=== PATIENT | female | born 1995 | race Caucasian/White ===

== ENCOUNTER 2021-01-04 15:10 | Emergency (ER) | payer OTHER, SELFPAY ==
[2021-01-04 16:27] VITALS: BP 147/85; PULSE 65; RESP 20; TEMP 36.6; O2SAT 100; BMI 31.8
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
== END 2021-01-04 18:44 | disposition home or self-care (01) ==
PROVIDERS: Emergency Provider Internal Medicine; PCP Internal Medicine
DX: S06.0X0A Concussion without loss of consciousness, initial encounter (principal); S39.012A Strain of muscle, fascia and tendon of lower back, initial encounter; S29.012A Strain of muscle and tendon of back wall of thorax, initial encounter; S50.12XA Contusion of left forearm, initial encounter; S80.02XA Contusion of left knee, initial encounter; V47.6XXA Car passenger injured in collision with fixed or stationary object in traffic accident, initial encounter; Y93.89 Activity, other specified; Y92.411 Interstate highway as the place of occurrence of the external cause; Y99.9 Unspecified external cause status
CPT/HCPCS: 99283; 99284

== ENCOUNTER 2021-02-07 22:32 | Emergency (ER) | payer OTHER, SELFPAY ==
[2021-02-07 22:37] VITALS: BP 130/84; PULSE 58; RESP 16; TEMP 37.2; O2SAT 100; BMI 31.8
--- NOTE | 2021-02-07 23:42 | ED.FEMALEGU ---
HPI - Female Genitourinary General Chief complaint: Vaginal Bleeding Stated complaint: vag bleed Time Seen by Provider: 02/07/21 23:20 Source: patient Mode of arrival: ambulatory Limitations: no limitations History of Present Illness HPI Narrative: Patient comes emergency room complaining of pelvic discomfort. Patient states that she has had an IUD for about a year, over last few months, she has had a poking sensation with certain movements. However, in the past several days, patient states that she has a continues poking sensation, worse when she is having bowel movements. Patient states that she usually does not get periods with the IUD. However, over the last few days she has been spotting. Patient denies dysuria, no fever chills. Related Data Previous Rx's Medication Instructions Recorded cyclobenzaprine 10 mg PO TID PRN #12 tab 01/04/21 ibuprofen 600 mg PO Q8H PRN #15 tab 01/04/21 lidocaine [Lidoderm] 1 patch TOPICAL DAILY #15 ea 01/04/21 ondansetron HCl [Zofran] 4 mg PO Q6H PRN #10 tab 01/04/21 Allergies Allergy/AdvReac Type Severity Reaction Status Date / Time No Known Allergies Allergy Verified 01/04/21 17:20 [No Known Allergies*] Review of Systems Review of Systems: Constitutional : No Weight loss, No Fever, No Chills, No Night Sweats, No Fatigue, No Malaise ENT/Mouth : No Hearing loss, No Ear Pain, No Nasal Congestion, No Sinus Pain, No Hoarseness, No sore throat, No Rhinorrhea, No Swallowing Difficulty Eyes: No Eye Pain, No Swelling, No Redness, No Foreign Body, No Discharge, No Vision Changes Cardiovascular : No Chest Pain, No SOB, No Dyspnea on Exertion, No Orthopnea, No Edema, No Palpitations Respiratory : No Cough, No Sputum, No Wheezing, No Smoke Exposure, No Dyspnea Gastrointestinal : No Nausea, No Vomiting, No Diarrhea, No Constipation, No abdominal Pain, No Hematochezia, No Melena Genitourinary : Complaining of spotting, No Dysuria, No Urinary Frequency, No Hematuria, No Urinary Incontinence, No Urgency, No Flank Pain, No Urinary Flow Changes, No Hesitancy, complaining IUD poking sensation Musculoskeletal : No joint pain, No Myalgias, No Joint Swelling Skin : No Skin Lesions, No rash Neuro : No Weakness, No Numbness, No Paresthesias, No Loss of Consciousness, No Dizziness, No Headache Psych : No Anxiety/Panic, No Depression, No SI/HI/AH/VH, No Social Issues, Heme/Lymph: No Bruising, No Bleeding,No Lymphadenopathy Endocrine : No Polyuria, No Polydipsia, No Temperature Intolerance PMF Past Medical History Medical History (Updated 02/08/21 @ 00:23 by Ana العلي MD) Endometriosis Social History Social History Alcohol intake: never Smoked in Last 30 Days: No Use of substances other than those prescribed or required for medical reasons: No Any prior treatment program specific to substance use: No Advance Directives: No Advance Directives Information Provided: No Patient : No Physical Exam Vital Signs: Vital Signs: Last Vital Signs Temp 98.9 F 02/07/21 22:37 Pulse 58 02/07/21 22:37 Resp 16 02/07/21 22:37 BP 130/84 02/07/21 22:37 Pulse Ox 100 02/07/21 22:37 Body Mass Index 31.8 Appearance: Alert. Oriented X3. No acute distress. Eyes: Pupils equal, round and reactive to light. ENT: Pharynx normal. Neck: Normal inspection. Neck supple. No lymph nodes noted. No crepitus CVS: Normal heart rate and rhythm. Pulses normal. Normal S1 and S2 Respiratory: No respiratory distress. Breath sounds normal. No Wheezing. No rales Abdomen: Soft and nontender. No rigidity. No distention. : Skin: Skin warm and dry. Normal skin color. Normal skin turgor. Extremities: No lower extremity edema. No lower extremity edema. No Lacerations. No Rash Neuro: Oriented X 3. No motor deficit. No sensory deficit. Moving all extermities. No slurred speech. Course Course Course Narrative: I discussed with the patient that the IUD on cervical exam looks like it is in place. Discussed with the patient we can not do a CT scan to verify the position. Patient states that she does not want the IUD, states that she would like to have it removed. I discussed with the patient that it would be a better option to discuss the IUD removal with her OBGYN, considering the patient has severe endometriosis. Patient states that she is already taking Orlissa, and either way she will want to have the IUD removed due to the constant are discomfort your I discussed with the patient that we can remove it. But she needs to have close follow-up with her primary care physician and OBGYN of patient is aware that once it is removed, she may have heavy bleeding on her menstrual periods again cleared patient states that she is agreeable with this. I also discussed with the patient that she may need backup control methods such as condoms. Patient is aware as well. The IUD was removed uneventfully, patient was medicated with 600 mg of ibuprofen Discharge Plan Discharge Clinical Impression: Remove/insert IUD Patient Disposition: Home, Self-Care Additional Instructions: Please follow-up with your primary care physician tomorrow. If you have any worsening or new symptoms, please return to the emergency room or call 911 Prescriptions: No Action ondansetron HCl [Zofran] 4 mg tablet 4 mg PO Q6H PRN (Reason: nausea and vomiting) Qty: 10 RF: 0 cyclobenzaprine 10 mg tablet 10 mg PO TID PRN (Reason: muscle spasm) Qty: 12 RF: 0 lidocaine [Lidoderm] 5 % adhesive patch,medicated 1 patch topical DAILY Qty: 15 RF: 0 ibuprofen 600 mg tablet 600 mg PO Q8H PRN (Reason: pain) Qty: 15 RF: 0
--- NOTE | 2021-02-08 00:23 | PC.NURSE ---
PT HAD PELVIC EAM PERFORMED BY DR. ORTIZ AND RAHDA REMOVED BY DR. ORTIZ.
[2021-02-08] MEDS: Ibuprofen 600 MG TABLET PO (00:28)
== END 2021-02-08 00:33 | disposition home or self-care (01) ==
PROVIDERS: Emergency Provider Emergency Medicine; PCP Internal Medicine
DX: N93.9 Abnormal uterine and vaginal bleeding, unspecified (principal); Z79.899 Other long term (current) drug therapy
CPT/HCPCS: 58301; 99284

== ENCOUNTER 2021-07-15 15:18 | Inpatient (IN) | payer OTHER, SELFPAY ==
--- NOTE | 2021-07-15 | ECG_ITS ---
Test Reason : MED CLEARANCE Blood Pressure : / mmHG Vent. Rate : 060 BPM Atrial Rate : 060 BPM P-R Int : 142 ms QRS Dur : 084 ms QT Int : 438 ms P-R-T Axes : 031 050 -03 degrees QTc Int : 438 ms Normal sinus rhythm Possible Left ventricular hypertrophy Nonspecific ST and T wave abnormality Abnormal ECG When compared with ECG of 16-DEC-2018 11:18, T wave inversion now evident in Inferior leads Nonspecific ST and T wave abnormality is new Referred By: Jes Beavers Electronically Signed By:SUDARSHAN CISNEROS MD
--- NOTE | 2021-07-15 15:37 | ED_ITS ---
HPI - Psych General Chief Complaint: Psychiatric Symptoms Stated Complaint: SECT 12,SEEN IN COMMUNITY,BED SEARCH IN PROGRESS Time Seen by Provider: 07/15/21 15:26 Source: EMS Mode of arrival: EMS Limitations: no limitations History of Present Illness HPI Narrative: 26-year-old female with a past medical history of anxiety, depression, endometriosis here with complaints of suicidal thoughts for the last few weeks. Patient tells me 3 days ago she took a handful of Seroquel in an attempt to overdose. She tells me that they were approximately 20 tablets 50 mg tablets. She tells me that she was not successful in this made her very upset. She denies any homicidal ideation or hallucinations. No physical complaints. She has a history of substance abuse but has not used for several weeks. Prior to this she was intermittently buying Percocets off the streets. She has a psychiatrist who prescribes her seroquel and sees a therapist weekly. Related Data Home Medications Medication Instructions Recorded Confirmed acetaminophen 500 mg tablet 500 mg PO TID 07/15/21 07/15/21 elagolix 150 mg tablet (Orilissa) 1 tab PO DAILY 07/15/21 07/15/21 multivitamin 1 tab PO DAILY 07/15/21 07/15/21 propranolol 20 mg tablet 1 tab PO BID 07/15/21 07/15/21 quetiapine 50 mg tablet 50 mg PO DAILY 07/15/21 07/15/21 quetiapine 50 mg tablet 100 mg PO BEDTIME 07/15/21 07/15/21 venlafaxine 150 mg 1 cap PO DAILY 07/15/21 07/15/21 capsule,extended release 24 hr venlafaxine 75 mg capsule,extended 1 cap PO DAILY 07/15/21 07/15/21 release 24 hr Allergies Allergy/AdvReac Type Severity Reaction Status Date / Time fish derived [fish] AdvReac Stomach Verified 07/15/21 15:51 Upset Review of Systems Review of Systems: Yes all other systems are reviewed and are negative Constitutional: Constitutional: Reports no additional constitutional complaints, Denies body ache(s), Denies chills, Denies fever(s), Denies headache(s) and Denies weakness Eyes: Eyes: Reports no additional eye complaints and Denies change in vision ENT: Reports system reviewed and no additional complaints, except as documented, Denies dizziness, Denies headache(s), Denies nasal congestion, Denies nasal discharge and Denies neck pain Cardiovascular: Cardiovascular: Reports no additional cardiovascular complaints, Denies chest pain, Denies leg edema and Denies dyspnea Respiratory: Respiratory: Reports no additional respiratory complaints, Denies cough and Denies dyspnea Gastrointestinal: Gastrointestinal: Reports no additional gastrointestinal complaints, Denies abdominal pain, Denies diarrhea, Denies nausea and Denies vomiting Genitourinary: Genitourinary: Reports no additional female genitourinary complaints and Denies urinary incontinence Musculoskeletal: Musculoskeletal: Reports no additional musculoskeletal complaints, Denies back pain, Denies arthralgias, Denies joint swelling, Denies neck pain, Denies numbness and Denies tingling Integumentary/Breasts: Skin/Breast: Reports system reviewed and no additional complaints, except as docu and Denies rash Neurologic: Reports system reviewed and no additional complaints, except as documented, Denies Abnormal speech present, Denies dizziness, Denies headache(s), Denies numbness, Denies tingling and Denies weakness Psychiatric: Psychiatric: Denies anxiety, Reports depression, Denies homicidal ideation and Reports suicidal ideation FOR[facility]LY [facility], [facility] Past Medical History Attestation statement: The following information was validated with the patient. Source: old records reviewed and nursing notes reviewed Medical History (Updated 07/15/21 @ 21:25 by Jes Beavers NP) Anxiety Depression Endometriosis Social History Social History Alcohol intake: never Advance Directives: No Advance Directives Information Provided: No Physical Exam Vital Signs: Vital Signs: Last Vital Signs Temp 98.7 F 07/15/21 15:39 Pulse 72 07/15/21 20:38 Resp 18 07/15/21 15:39 BP 123/87 07/15/21 20:38 Pulse Ox 97 07/15/21 15:39 Body Mass Index 42.3 Const: General: cooperative, healthy appearing, comfortable and no acute distress Orientation/consciousness: patient oriented x3 Limitations: no limitations HENMT: Head: Yes normal to inspection Ears: hearing grossly normal bilaterally General nose exam: Normal external nose present Face and sinus: Yes normal facial exam Mouth: Normal oral and palatal mucosa present Throat: Yes posterior oropharynx normal Eyes: General: appearance normal, both eyes and all related structures Pupils: Equal, round and reactive pupils present Neck: Neck: Yes normal visual inspection Chest: Chest palpation & inspection: normal inspection of the chest Resp: Effort & Inspection: normal respiratory effort Auscultation: clear to auscultation bilaterally Cardio: Rate: regular rate Rhythm: regular rhythm Peripheral pulses: Peripheral pulses 2+ throughout GI: Inspection: Yes normal to inspection Palpation (GI): Soft to palpation and nontender Auscultation: normal bowel sounds Back/Spine/Pelvis: Thoracic/Lumbar Spine: thoracic and lumbar spine normal to inspection Skin: General skin exam: no rashes or lesions noted Neuro: General: patient oriented x3, no focal motor deficits and normal sensation to monofilament Cranial nerves: Yes CN's II-XII intact bilaterally and Yes Equal, round and reactive pupils present Cognition (Neuro): normal cognition Speech: No Abnormal speech present Gait exam (Neuro): Normal gait present Motor exam (neuro): 5/5 motor strength present throughout Extrem: General: Yes normal to inspection Course Course Course Narrative: 26 yo female here with complaints of suicidal thoughts with a recent suicide attempt on a Section 12. No physical complaints. Will check labs, drug screen, COVID screen. 1645-reviewed labs, tox screen, COVID screen. At this time patient placed in physician observation pending disposition. MDM - Psych Medical Records Attestation: I reviewed the patient's medical records. Lab Data Attestation: I reviewed the patient's lab results. Result diagrams: 07/15/21 15:56 07/15/21 15:56 Labs: Lab Results 07/15/21 07/15/21 07/15/21 Range/Units 15:56 15:56 15:56 WBC 9.4 (4.8-10.8) X10*3/uL RBC 4.09 L (4.20-5.50) X10*6/uL Hgb 11.9 L (12.0-16.0) g/dl Hct 36.0 L (37.0-47.0) % MCV 88.0 (80.0-98.0) fL MCH 29.1 (27.0-33.0) pg MCHC 33.1 (31.0-35.0) g/dl RDW 13.8 (11.0-16.0) % Plt Count TNP MPV 11.5 (9.4-12.3) fL Immature Gran % (Auto) 0.4 (0.0-0.4) % Neut % (Auto) 77.3 H (45-73) % Lymph % (Auto) 16.7 L (20-40) % [place] % (Auto) 5.2 (2-11) % Eos % (Auto) 0.2 (0-4) % Baso % (Auto) 0.2 (0-2) % Lymph # (Auto) 1.6 (1.2-4.9) X10*3/uL [place] # (Auto) 0.5 (0.1-1.2) X10*3/uL Eos # (Auto) 0.0 (0.0-0.4) X10*3/uL Baso # (Auto) 0.0 (0.0-0.2) X10*3/uL Abs Immat Gran (auto) 0.04 H (0.00-0.03) X10*3/uL Absolute Neuts (auto) 7.28 (2.0-8.3) x10*3/uL Absolute Nucleated RBC 0.000 (0.0-0.012) X10*3/uL Nucleated RBC % (auto) 0.0 (0.0-0.2) /100WBC Smear Tech's Comments VERIFIED Sodium 143 (135-145) mmol/L Potassium 3.8 (3.3-5.1) mmol/L Chloride 104 (96-108) mmol/L Carbon Dioxide 28 (22-29) mmol/L Anion Gap 15 (12-20) BUN 19 H (9-16) mg/dL Creatinine 0.83 (0.5-1.4) mg/dL Estim Creat Clear Calc 118.8 Estimated GFR > 60 Random Glucose 110 (60-115) mg/dL Calcium 10.1 (8.4-10.2) mg/dL Total Bilirubin 0.4 (0.0-1.0) mg/dL Direct Bilirubin < 0.2 (0.0-0.5) mg/dL AST 15 (5-31) U/L ALT 16 (0-31) U/L Alkaline Phosphatase 75 (39-117) U/L Total Protein 8.0 (6.5-8.0) g/dL Albumin 4.9 (3.5-5.0) g/dL Urine Test (NEGATIVE) Salicylates < 5.0 L (15-30) mg/dL Urine Opiates Screen (Not Detect) Urine Fentanyl Screen (Not Detect) Acetaminophen 1 (<30) mcg/mL Ur Barbiturates Screen (Not Detect) Ur Phencyclidine Scrn (Not Detect) Ur Amphetamines Screen (Not Detect) U Benzodiazepines Scrn (Not Detect) Urine Cocaine Screen (Not Detect) U Marijuana (THC) Screen (Not Detect) Ethyl Alcohol mg/dL COVID-19 (FAVIAN) Negative (Negative) COVID-19 Clin Com See Note 07/15/21 07/15/21 07/15/21 Range/Units 15:56 15:56 15:56 WBC (4.8-10.8) X10*3/uL RBC (4.20-5.50) X10*6/uL Hgb (12.0-16.0) g/dl Hct (37.0-47.0) % MCV (80.0-98.0) fL MCH (27.0-33.0) pg MCHC (31.0-35.0) g/dl RDW (11.0-16.0) % Plt Count MPV (9.4-12.3) fL Immature Gran % (Auto) (0.0-0.4) % Neut % (Auto) (45-73) % Lymph % (Auto) (20-40) % [place] % (Auto) (2-11) % Eos % (Auto) (0-4) % Baso % (Auto) (0-2) % Lymph # (Auto) (1.2-4.9) X10*3/uL [place] # (Auto) (0.1-1.2) X10*3/uL Eos # (Auto) (0.0-0.4) X10*3/uL Baso # (Auto) (0.0-0.2) X10*3/uL Abs Immat Gran (auto) (0.00-0.03) X10*3/uL Absolute Neuts (auto) (2.0-8.3) x10*3/uL Absolute Nucleated RBC (0.0-0.012) X10*3/uL Nucleated RBC % (auto) (0.0-0.2) /100WBC Smear Tech's Comments Sodium (135-145) mmol/L Potassium (3.3-5.1) mmol/L Chloride (96-108) mmol/L Carbon Dioxide (22-29) mmol/L Anion Gap (12-20) BUN (9-16) mg/dL Creatinine (0.5-1.4) mg/dL Estim Creat Clear Calc Estimated GFR Random Glucose (60-115) mg/dL Calcium (8.4-10.2) mg/dL Total Bilirubin (0.0-1.0) mg/dL Direct Bilirubin (0.0-0.5) mg/dL AST (5-31) U/L ALT (0-31) U/L Alkaline Phosphatase (39-117) U/L Total Protein (6.5-8.0) g/dL Albumin (3.5-5.0) g/dL Urine Test NEGATIVE (NEGATIVE) Salicylates (15-30) mg/dL Urine Opiates Screen Not Detected (Not Detect) Urine Fentanyl Screen POSITIVE H (Not Detect) Acetaminophen (<30) mcg/mL Ur Barbiturates Screen Not Detected (Not Detect) Ur Phencyclidine Scrn Not Detected (Not Detect) Ur Amphetamines Screen Not Detected (Not Detect) U Benzodiazepines Scrn Not Detected (Not Detect) Urine Cocaine Screen Not Detected (Not Detect) U Marijuana (THC) Screen POSITIVE H (Not Detect) Ethyl Alcohol < 10 mg/dL COVID-19 (FAVIAN) (Negative) COVID-19 Clin Com Discharge Plan Discharge Clinical Impression: Depression Patient Disposition: Admitted As Inpatient
[2021-07-15 15:39] VITALS: BP 149/77; PULSE 79; RESP 18; TEMP 37.1; O2SAT 97; BMI 42.3
[2021-07-15 16:07] LABS: Urine Pregnancy NEGATIVE (NEGATIVE)
[2021-07-15 16:08] LABS: UPreg QC Valid YES
[2021-07-15 16:10] LABS: Basophils Percent Auto 0.2 % (0-2); Eosinophils Percent Auto 0.2 % (0-4); Hemoglobin 11.9 g/dl (12.0-16.0); Imm Gran Abs Auto 0.04 X10*3/uL (0.00-0.03); Imm Gran Pct Auto 0.4 % (0.0-0.4); Lymphocytes Absolute Auto 1.6 X10*3/uL (1.2-4.9); Lymphocytes Percent Auto 16.7 % (20-40); MANUAL DIFF FLAG SCAN; Mean Corpuscular HGB Conc 33.1 g/dl (31.0-35.0); Mean Corpuscular Hemoglobin 29.1 pg (27.0-33.0); Mean Platelet Volume 11.5 fL (9.4-12.3); Monocytes Absolute Auto 0.5 X10*3/uL (0.1-1.2); Monocytes Percent Auto 5.2 % (2-11); Neutrophils Absolute Auto 7.28 x10*3/uL (2.0-8.3); Neutrophils Percent Auto 77.3 % (45-73); PLT CLUMP 1; Red Blood Count 4.09 X10*6/uL (4.20-5.50); Red Cell Distribution Width 13.8 % (11.0-16.0); SCAN SMEAR FLAG 1
--- NOTE | 2021-07-15 16:11 | PHA.MEDREC ---
Pharmacy Consult ? Medication Reconciliation Pharmacy has completed the medication reconciliation. Maggie KhannaD
[2021-07-15 16:14] LABS: White Blood Count 9.4 X10*3/uL (4.8-10.8)
[2021-07-15 16:19] LABS: COVID-19 Test Negative (Negative)
[2021-07-15 16:20] LABS: Ethanol < 10 mg/dL
[2021-07-15 16:23] LABS: Amphetamine Screen Urine Not Detected (Not Detect); Barbiturates, Urine Not Detected (Not Detect); Benzodiazepines Screen Urine Not Detected (Not Detect); Cannabinoid Screen Urine POSITIVE (Not Detect); Cocaine Screen Urine Not Detected (Not Detect); Fentanyl, urine POSITIVE (Not Detect); Opiate Screen Urine Not Detected (Not Detect); Phencyclidine Screen Urine Not Detected (Not Detect)
[2021-07-15 16:28] LABS: SLIDE REVIEW VERIFIED
[2021-07-15 16:30] LABS: Acetaminophen LAB 1 mcg/mL (<30); Alanine Aminotransferase 16 U/L (0-31); Albumin Level 4.9 g/dL (3.5-5.0); Alkaline Phosphatase 75 U/L (39-117); Anion Gap 15 (12-20); Aspartate Amino Transferase 15 U/L (5-31); Bilirubin Direct < 0.2 mg/dL (0.0-0.5); Bilirubin Total 0.4 mg/dL (0.0-1.0); Blood Urea Nitrogen 19 mg/dL (9-16); Calcium 10.1 mg/dL (8.4-10.2); Carbon Dioxide 28 mmol/L (22-29); Chloride 104 mmol/L (96-108); Creatinine Clr Calc Pharmacy 118.8; Estimated Glomerular Filt Rate > 60; Glucose Random 110 mg/dL (60-115); Potassium 3.8 mmol/L (3.3-5.1); Sodium 143 mmol/L (135-145)
[2021-07-15 16:31] LABS: Salicylate < 5.0 mg/dL (15-30)
[2021-07-15] MEDS: hydrOXYzine HCL 50 MG TABLET PO (17:03)
[2021-07-15] MEDS: Acetaminophen 325 MG TABLET 650 MG PO (20:37)
[2021-07-15 20:38] VITALS: BP 123/87; PULSE 72
[2021-07-15] MEDS: Propranolol HCL 20 MG TABLET PO (20:38)
--- NOTE | 2021-07-15 21:12 | MHC.CARE ---
Accepted to for admission. 507-1 auth #[id number] 3 days approved by Dali Wharton from [facility].
[2021-07-15 22:15] VITALS: BP 143/95; PULSE 93; TEMP 36.8; O2SAT 98
--- NOTE | 2021-07-15 22:51 | PC.ADMIT ---
Pt is a 26 year old who came into [facility] after increased SI over the past few weeks and reported having taken Seroquel in attempt to overdose. Contracted for safety on the unit. Pt expressed that she has been having difficulty sleeping for awhile . Appetite has been poor I just don't have an appetite because I am in pain because of my endometriosis but taking my medications with Tylenol helps . Rates depression and anxiety a 06/23. Tox screen positive: fentanyl and marijuana. Reports having a Percocet about a week ago and doesn't know about fentanyl in her system. Placed on 15 minute safety checks. CV signed.
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
[2021-07-16 06:00] VITALS: BP 120/95; PULSE 86; TEMP 36.2; O2SAT 98
[2021-07-16] MEDS: Multivitamin TABLET 1 TAB PO (08:26)
[2021-07-16] MEDS: Propranolol HCL 20 MG TABLET PO ×3 (08:26→21:31)
[2021-07-16] MEDS: Venlafaxine HCl ER 150 MG CAP.ER.24H PO (08:26)
[2021-07-16] MEDS: QUEtiapine Fumarate 50 MG TABLET PO (08:26)
[2021-07-16] MEDS: Venlafaxine HCl ER 75 MG CAP.ER.24H PO (08:26)
--- NOTE | 2021-07-16 10:14 | HO.PSYCHPN ---
Subjective Subjective Date of Service: 07/16/21 Reason For Visit: Depression,SI Interim History: Patient remains depressed. No active SI but passive and she remains ambivalent about whether she is glad to be alive. Patient expert medical writer discussed her history. Patient reports depression since childhood she got out of [place] [address] around last August 2020, was still depressed and eventually relapsed on Percocets. Patient lost custody of her child this past December 2020 who now lives with patient's mother with whom patient has a very fractured relationship. Patient's depression continued to worsen to the point where she was not getting out of bed, not leaving the house and endorsing all neurovegetative symptoms of depression which have continued to increase this past month. Patient has been on venlafaxine for quite a while however recently increased to 225 mg for about 2 months. Patient's depression worsened to the point were she started having more frequent and intense suicidal ideation in addition to her her chronic passive SI. Patient says she very much wanted to be here for her daughter however it was getting increasingly hard to be hopeful. Also contributory was the fact that to a patient's close friends within the past 3 months; also patient moved out of her house and into a new house with her current boyfriend which was stressful. Last week patient in of moment of deep despair, decided to kill herself, texted her child's father to say goodbye for her and apologized to her daughter and then took an overdose of her Seroquel. She says she woke up later on alive, but not necessarily happy about. Patient endorsed both childhood and adult trauma and has PTSD symptoms with nightmares 4-5 nights a week, flashbacks that cause autonomic response, hypervigilance avoiding triggers. Window Framer reviewed symptoms of bipolar disorder and Patient denies history of manic type episodes or behaviors. Patient agrees to taper and discontinue venlafaxine which she says has been on helpful at all even at current 225 mg dose She agrees to start a trial of Wellbutrin to see if that can help with depression Patient is also interested in potentially getting on Lamictal but given the fact that it can take over a month to even reach a therapeutic dose, she would like to start Wellbutrin 1st. Discussed nightmares and patient is currently taking propranolol at bedtime for her anxiety. Diagnostics Vital Signs (24Hr): Vital Signs - 24 hr 07/15/21 15:39 07/15/21 20:38 07/15/21 22:15 Temperature 98.7 F 98.3 F Pulse Rate 79 72 93 Respiratory Rate 18 Blood Pressure 149/77 H 123/87 143/95 H Pulse Oximetry 97 98 07/16/21 06:00 Temperature 97.1 F Pulse Rate 86 Respiratory Rate Blood Pressure 120/95 H Pulse Oximetry 98 Body Mass Index 42.3 Labs Results: 07/15/21 15:56 07/15/21 15:56 Labs: Laboratory Results - last 48 hr 07/15/21 07/15/21 07/15/21 15:56 15:56 15:56 WBC 9.4 RBC 4.09 L Hgb 11.9 L Hct 36.0 L MCV 88.0 MCH 29.1 MCHC 33.1 RDW 13.8 Plt Count TNP MPV 11.5 Immature Gran % (Auto) 0.4 Neut % (Auto) 77.3 H Lymph % (Auto) 16.7 L [place] % (Auto) 5.2 Eos % (Auto) 0.2 Baso % (Auto) 0.2 Lymph # (Auto) 1.6 [place] # (Auto) 0.5 Eos # (Auto) 0.0 Baso # (Auto) 0.0 Abs Immat Gran (auto) 0.04 H Absolute Neuts (auto) 7.28 Absolute Nucleated RBC 0.000 Nucleated RBC % (auto) 0.0 Smear Tech's Comments VERIFIED Sodium 143 Potassium 3.8 Chloride 104 Carbon Dioxide 28 Anion Gap 15 BUN 19 H Creatinine 0.83 Estim Creat Clear Calc 118.8 Estimated GFR > 60 Random Glucose 110 Calcium 10.1 Total Bilirubin 0.4 Direct Bilirubin < 0.2 AST 15 ALT 16 Alkaline Phosphatase 75 Total Protein 8.0 Albumin 4.9 Urine Test Salicylates < 5.0 L Urine Opiates Screen Urine Fentanyl Screen Acetaminophen 1 Ur Barbiturates Screen Ur Phencyclidine Scrn Ur Amphetamines Screen U Benzodiazepines Scrn Urine Cocaine Screen U Marijuana (THC) Screen Ethyl Alcohol COVID-19 (FAVIAN) Negative COVID-19 Clin Com See Note 07/15/21 07/15/21 07/15/21 15:56 15:56 15:56 WBC RBC Hgb Hct MCV MCH MCHC RDW Plt Count MPV Immature Gran % (Auto) Neut % (Auto) Lymph % (Auto) [place] % (Auto) Eos % (Auto) Baso % (Auto) Lymph # (Auto) [place] # (Auto) Eos # (Auto) Baso # (Auto) Abs Immat Gran (auto) Absolute Neuts (auto) Absolute Nucleated RBC Nucleated RBC % (auto) Smear Tech's Comments Sodium Potassium Chloride Carbon Dioxide Anion Gap BUN Creatinine Estim Creat Clear Calc Estimated GFR Random Glucose Calcium Total Bilirubin Direct Bilirubin AST ALT Alkaline Phosphatase Total Protein Albumin Urine Test NEGATIVE Salicylates Urine Opiates Screen Not Detected Urine Fentanyl Screen POSITIVE H Acetaminophen Ur Barbiturates Screen Not Detected Ur Phencyclidine Scrn Not Detected Ur Amphetamines Screen Not Detected U Benzodiazepines Scrn Not Detected Urine Cocaine Screen Not Detected U Marijuana (THC) Screen POSITIVE H Ethyl Alcohol < 10 COVID-19 (FAVIAN) COVID-19 Clin Com Medications Medications Current Medications Acetaminophen (Acetaminophen 325 Mg Tablet) 650 mg PO Q6H PRN PRN Reason: Headache/Pain Mild Scale (1-3) Al Hydroxide/Mg Hydroxide (Magnesium Hydrox/Alum Hydrox 30 Ml Oral.Susp) 30 ml PO Q6H PRN PRN Reason: Heartburn/Nausea Hydroxyzine HCl (Hydroxyzine Hcl 25 Mg Tablet) 25 mg PO Q6H PRN PRN Reason: Anxiety Magnesium Hydroxide (Milk Of Magnesia 30 Ml Oral.Susp) 30 ml PO DAILY PRN PRN Reason: Constipation Multivitamins/Vitamin C (Multivitamin Tablet) 1 tab PO DAILY [facility] Last Admin: 07/16/21 08:26 Dose: 1 tab Documented by: Non-Formulary Medication (Elagolix [Orilissa]) 1 tab PO DAILY [facility] Propranolol HCl (Propranolol Hcl 20 Mg Tablet) 20 mg PO TID [facility]; Protocol Last Admin: 07/16/21 08:26 Dose: 20 mg Documented by: Quetiapine Fumarate (Quetiapine Fumarate 100 Mg Tablet) 100 mg PO BEDTIME ALAN Last Admin: 07/16/21 00:00 Dose: 100 mg Documented by: Quetiapine Fumarate (Quetiapine Fumarate 50 Mg Tablet) 50 mg PO DAILY [facility] Last Admin: 07/16/21 08:26 Dose: 50 mg Documented by: Trazodone HCl (Trazodone Hcl 50 Mg Tablet) 50 mg PO BEDTIME PRN PRN Reason: Insomnia Venlafaxine HCl (Venlafaxine Hcl Er 75 Mg Cap.Er.24h) 75 mg PO DAILY [facility] Last Admin: 07/16/21 08:26 Dose: 75 mg Documented by: Venlafaxine HCl (Venlafaxine Hcl Er 150 Mg Cap.Er.24h) 150 mg PO DAILY [facility] Last Admin: 07/16/21 08:26 Dose: 150 mg Documented by: Allergies Allergies Allergy/AdvReac Type Severity Reaction Status Date / Time fish derived [fish] AdvReac Stomach Verified 07/15/21 15:51 Upset Assessment & Plan Assessment & Plan (1) Opioid use disorder, moderate, dependence: Status: Acute Code(s): F11.20 - Opioid dependence, uncomplicated (2) MDD (major depressive disorder), recurrent, severe, with psychosis: Status: Acute Code(s): F33.3 - Major depressive disorder, recurrent, severe with psychotic symptoms (3) GIORGI (generalized anxiety disorder): Status: Acute Code(s): F41.1 - Generalized anxiety disorder (4) Post traumatic stress disorder (PTSD): Status: Acute Code(s): F43.10 - Post-traumatic stress disorder, unspecified Assessment and Plan: Viky is a 26 y.o. Female who carries a dx of MDD, recurrent, GIORGI, PTSD, and opioid use disorder. Pt was seen by crisis for SI, SA by OD on seroquel. She is presenting with sx of depression, anxiety, and endorses SI but denies plan or intent and says she feels safe on the unit. Pt reports she has significant trauma hx but did not go into detail during todays assessment. Recent relapse on percocet. Hx of detox and [place] 35 for opiate abuse. Single parent, daughter is not in her custody and DCF is involved. Hospital course/medication reasonin/2 Patient agrees to taper and discontinue venlafaxine which she says has been on helpful at all even at current 225 mg dose She agrees to start a trial of Wellbutrin to see if that can help with depression -patient endorses considerable anxiety as well as depression, saying she wakes up in a near panic every morning; propranolol helps; Wellbutrin can sometimes bother anxiety, however will monitor Patient is also interested in potentially getting on Lamictal but given the fact that it can take over a month to even reach a therapeutic dose, she would like to start Wellbutrin 1st. Discussed nightmares and patient is currently taking propranolol at bedtime for her anxiety. -patient recently attempted suicide and remains extremely depressed; will remain admitted for medication management safety DX MDD recurrent severe without psychotic symptoms PTSD, chronic GIORGI? vs ptsd anxiety Opioid use disorder PLAN: Patient on CV Q 15 minutes for checks -Will start patient on Wellbutrin for depression 150 mg XL; if tolerated will increase -taper and DC venlafaxine; to avoid discontinuation syndrome will likely leave patient on some lower dose for an extended period of time Continue Seroquel at bedtime and in the morning for anxiety Continue propranolol t.i.d. Will consider prazosin for nightmares if patient's blood pressure can sustain it. Patient will consider MAT for opiate abuse Monitor response to medications. Monitor for safety in the milieu. Discharge on stabilization. Patient seen. Chart reviewed. Discussed with team. Obtain collateral contact info?as needed I spent minutes with the patient and/or on the patient floor today, greater than?50% of which was spent counseling/coordinating care. Reason for contiued inpatient stay Substantial Risk for: harm to self and rapid decompensation
[2021-07-16] MEDS: Acetaminophen 325 MG TABLET 650 MG PO ×2 (11:19→19:40)
[2021-07-16 15:05] VITALS: BP 116/73; PULSE 84; RESP 16
[2021-07-16 15:08] VITALS: BP 116/73
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
[2021-07-16 18:00] VITALS: BP 139/96; PULSE 102; TEMP 36.2; O2SAT 100
--- NOTE | 2021-07-16 20:13 | PC.NURSE ---
Correction- patient is not a smoker and does not need NRT
[2021-07-16 21:31] VITALS: BP 139/96; PULSE 102
[2021-07-16] MEDS: QUEtiapine Fumarate 100 MG TABLET PO ×2 (21:31)
[2021-07-17 06:00] VITALS: BP 126/89; PULSE 68; RESP 18; TEMP 36.7; O2SAT 100
[2021-07-17 08:08] VITALS: BP 127/76; PULSE 83
[2021-07-17] MEDS: Propranolol HCL 20 MG TABLET PO ×3 (08:08→22:07)
[2021-07-17] MEDS: Venlafaxine HCl ER 150 MG CAP.ER.24H PO (08:09)
[2021-07-17] MEDS: QUEtiapine Fumarate 50 MG TABLET PO (08:09)
[2021-07-17] MEDS: Multivitamin TABLET 1 TAB PO (08:09)
[2021-07-17] MEDS: buPROPion HCl XL 150 MG TAB.ER.24H PO (08:09)
[2021-07-17] MEDS: Acetaminophen 325 MG TABLET 650 MG PO ×3 (08:18→22:08)
--- NOTE | 2021-07-17 10:06 | HO.PSYCHPN ---
Subjective Subjective Date of Service: 07/17/21 Reason For Visit: Depression,SI Interim History: Patient remains depressed. No SI and says that started on medication regimen has provided some hope. Patient was crying uncontrollably this morning however she was able to eventually calm down. Patient Relations Coordinator discussed her seeming affability and patient said that she is used to hiding her feelings from others. She is trying to use milieu therapy to distract her from her ruminating hopeless thoughts which has been somewhat successful but patient continues to struggle. Patient had nightmare last night and woke up punching the air. She agrees to try prazosin at bedtime even though she is already on propranolol, however her blood pressure seems to be able to tolerate trial. Patient denies any side effects from Wellbutrin including increased anxiety and she would like to continue taking it. She also denies any side effects from lower dose of venlafaxine. Patient is very anxious about whether the medications will be effective given her long history of depression; she is interested in also starting on Lamictal to which health technical writer agrees, since it takes over a month to reach of therapeutic dose, patient can use that time to decide whether Wellbutrin is sufficient or only partially helpful and at that time can either increase or discontinue Lamictal Patient Relations Coordinator discussed aftercare and the need for patient to have daytime activity to which she agreed Mental Status Exam Mental Status Exam Narrative: Pt is alert and oriented; behavior is cooperative, calm; dressed in casual attire with adequate hygiene; mood is described as depressed and anxious, though affect is friendly; eye contact appropriate; Speech is normal rate, volume and prosody and not pressured; no psychomotor agitation/retardation present; thought process is organized and goal directed. Thought content is on fighting off hopelessness and ambivalence about still being alive; intermittent, passive SI. TC otherwise pertinent to relevant topics and without any delusional content, paranoid ideations or grandiosity; no HI. There is no evidence of perceptual disturbance. Patients insight and judgment are impaired. Diagnostics Vital Signs (24Hr): Vital Signs - 24 hr 07/16/21 15:05 07/16/21 15:08 07/16/21 18:00 Temperature 97.2 F Pulse Rate 84 102 H Respiratory Rate 16 Blood Pressure 116/73 116/73 139/96 H Pulse Oximetry 100 07/16/21 21:31 07/17/21 06:00 07/17/21 08:08 Temperature 98.0 F Pulse Rate 102 H 68 83 Respiratory Rate 18 Blood Pressure 139/96 H 126/89 127/76 Pulse Oximetry 100 Body Mass Index 42.3 Labs Results: 07/15/21 15:56 07/15/21 15:56 Labs: Laboratory Results - last 48 hr 07/15/21 07/15/21 07/15/21 15:56 15:56 15:56 WBC 9.4 RBC 4.09 L Hgb 11.9 L Hct 36.0 L MCV 88.0 MCH 29.1 MCHC 33.1 RDW 13.8 Plt Count TNP MPV 11.5 Immature Gran % (Auto) 0.4 Neut % (Auto) 77.3 H Lymph % (Auto) 16.7 L [place] % (Auto) 5.2 Eos % (Auto) 0.2 Baso % (Auto) 0.2 Lymph # (Auto) 1.6 [place] # (Auto) 0.5 Eos # (Auto) 0.0 Baso # (Auto) 0.0 Abs Immat Gran (auto) 0.04 H Absolute Neuts (auto) 7.28 Absolute Nucleated RBC 0.000 Nucleated RBC % (auto) 0.0 Smear Tech's Comments VERIFIED Sodium 143 Potassium 3.8 Chloride 104 Carbon Dioxide 28 Anion Gap 15 BUN 19 H Creatinine 0.83 Estim Creat Clear Calc 118.8 Estimated GFR > 60 Random Glucose 110 Calcium 10.1 Total Bilirubin 0.4 Direct Bilirubin < 0.2 AST 15 ALT 16 Alkaline Phosphatase 75 Total Protein 8.0 Albumin 4.9 Urine Test Salicylates < 5.0 L Urine Opiates Screen Urine Fentanyl Screen Acetaminophen 1 Ur Barbiturates Screen Ur Phencyclidine Scrn Ur Amphetamines Screen U Benzodiazepines Scrn Urine Cocaine Screen U Marijuana (THC) Screen Ethyl Alcohol COVID-19 (FAVIAN) Negative COVID-19 Clin Com See Note 07/15/21 07/15/21 07/15/21 15:56 15:56 15:56 WBC RBC Hgb Hct MCV MCH MCHC RDW Plt Count MPV Immature Gran % (Auto) Neut % (Auto) Lymph % (Auto) [place] % (Auto) Eos % (Auto) Baso % (Auto) Lymph # (Auto) [place] # (Auto) Eos # (Auto) Baso # (Auto) Abs Immat Gran (auto) Absolute Neuts (auto) Absolute Nucleated RBC Nucleated RBC % (auto) Smear Tech's Comments Sodium Potassium Chloride Carbon Dioxide Anion Gap BUN Creatinine Estim Creat Clear Calc Estimated GFR Random Glucose Calcium Total Bilirubin Direct Bilirubin AST ALT Alkaline Phosphatase Total Protein Albumin Urine Test NEGATIVE Salicylates Urine Opiates Screen Not Detected Urine Fentanyl Screen POSITIVE H Acetaminophen Ur Barbiturates Screen Not Detected Ur Phencyclidine Scrn Not Detected Ur Amphetamines Screen Not Detected U Benzodiazepines Scrn Not Detected Urine Cocaine Screen Not Detected U Marijuana (THC) Screen POSITIVE H Ethyl Alcohol < 10 COVID-19 (FAVIAN) COVID-19 Clin Com Medications Medications Current Medications Acetaminophen (Acetaminophen 325 Mg Tablet) 650 mg PO Q6H PRN PRN Reason: Headache/Pain Mild Scale (1-3) Last Admin: 07/17/21 08:18 Dose: 650 mg Documented by: Al Hydroxide/Mg Hydroxide (Magnesium Hydrox/Alum Hydrox 30 Ml Oral.Susp) 30 ml PO Q6H PRN PRN Reason: Heartburn/Nausea Bupropion HCl (Bupropion Hcl Xl 150 Mg Tab.Er.24h) 150 mg PO DAILY [facility] Last Admin: 07/17/21 08:09 Dose: 150 mg Documented by: Hydroxyzine HCl (Hydroxyzine Hcl 25 Mg Tablet) 25 mg PO Q6H PRN PRN Reason: Anxiety Magnesium Hydroxide (Milk Of Magnesia 30 Ml Oral.Susp) 30 ml PO DAILY PRN PRN Reason: Constipation Multivitamins/Vitamin C (Multivitamin Tablet) 1 tab PO DAILY [facility] Last Admin: 07/17/21 08:09 Dose: 1 tab Documented by: Patient Own Medication (Elagolix [Orilissa] 150 Mg Tablet) 1 each PO BEDTIME [facility] Last Admin: 07/16/21 21:32 Dose: 1 each Documented by: Propranolol HCl (Propranolol Hcl 20 Mg Tablet) 20 mg PO TID [facility]; Protocol Last Admin: 07/17/21 08:08 Dose: 20 mg Documented by: Quetiapine Fumarate (Quetiapine Fumarate 100 Mg Tablet) 100 mg PO BEDTIME [facility] Last Admin: 07/16/21 21:31 Dose: 100 mg Documented by: Quetiapine Fumarate (Quetiapine Fumarate 50 Mg Tablet) 50 mg PO DAILY [facility] Last Admin: 07/17/21 08:09 Dose: 50 mg Documented by: Trazodone HCl (Trazodone Hcl 50 Mg Tablet) 50 mg PO BEDTIME PRN PRN Reason: Insomnia Venlafaxine HCl (Venlafaxine Hcl Er 150 Mg Cap.Er.24h) 150 mg PO DAILY ALAN Last Admin: 07/17/21 08:09 Dose: 150 mg Documented by: Allergies Allergies Allergy/AdvReac Type Severity Reaction Status Date / Time fish derived [fish] AdvReac Stomach Verified 07/15/21 15:51 Upset Assessment & Plan Assessment & Plan (1) Opioid use disorder, moderate, dependence: Status: Acute Code(s): F11.20 - Opioid dependence, uncomplicated Assessment and Plan: patient given written information around medications for OUD. She will review and discuss in AM with Recovery Support RN Additional recovery support information provided Assessment and Plan: Viky is a 26 y.o. Female who carries a dx of MDD, recurrent, GIORGI, PTSD, and opioid use disorder and endometriosis. Pt was seen by crisis for SI, SA by OD on seroquel. She is presenting with sx of depression, anxiety, and endorses SI but denies plan or intent and says she feels safe on the unit. Pt reports she has significant trauma hx but did not go into detail during todays assessment. Recent relapse on percocet. Hx of detox and section 35 for opiate abuse. Single parent, daughter is not in her custody and DCF is involved. Hospital course/medication reasoning: ?07/16 Patient agrees to taper and discontinue venlafaxine which she says has been on helpful at all even at current 225 mg dose She agrees to start a trial of Wellbutrin to see if that can help with depression -patient endorses considerable anxiety as well as depression, saying she wakes up in a near panic every morning; propranolol helps; Wellbutrin can sometimes bother anxiety, however will monitor Patient is also interested in potentially getting on Lamictal but given the fact that it can take over a month to even reach a therapeutic dose, she would like to start Wellbutrin 1st.? Discussed nightmares and patient is currently taking propranolol at bedtime for her anxiety. -still depressed and anxious with periodic crying spells; tolerating med changes so far -will likely start Lamictal; Wellbutrin will be used to see if can prove effective during which time Lamictal can be titrated and then on board if needed. Given Lamictal is a longer titration, Pt does not want to loose time should Wellbutrin only proved partially effective; given patient's long history of crippling depression and recent suicide attempt, health technical writer agrees with this approach. -patient recently attempted suicide and remains extremely depressed with intermittent SI; will remain admitted for medication management safety DX MDD recurrent severe without psychotic symptoms PTSD, chronic GIORGI (? vs ptsd anxiety) Opioid use disorder PLAN: Patient on CV Q 15 minutes for checks -Wellbutrin 150 mg XL; if tolerated will increase -taper and DC venlafaxine; to avoid discontinuation syndrome will likely leave patient on some lower dose for an extended period of time Continue Seroquel at bedtime and in the morning for anxiety Continue propranolol t.i.d. START prazosin 1 mg for nightmares to see if helps; BP WNL patient wants to get on naltrexone Continue patient's own medication Orilissa 150 Mg Tablet for endometriosis otherwise: Monitor response to medications. Monitor for safety in the milieu. Discharge on stabilization. Patient seen. Chart reviewed. Discussed with team. Obtain collateral contact info?as needed I spent minutes with the patient and/or on the patient floor today, greater than?50% of which was spent counseling/coordinating care. Reason for contiued inpatient stay Substantial Risk for: harm to self and med/psych decompensation
--- NOTE | 2021-07-17 10:39 | MHC.RECOVRN ---
Met with pt to f/u after MOUD discussion with yesterday. Pt interested in initiating naltrexone with a goal of receiving Vivitrol. Pts questions answered, including questions regarding side effects and appropriate time to initiate. Pt provided with list of MOUD providers, pt lives in [facility] so will choose accordingly. Pt encouraged to make appt with provider prior to dc. Pt denies other comments or concerns. Discussed with Darshana Weaver APRN.
[2021-07-17 15:05] VITALS: BP 129/89; PULSE 83
[2021-07-17 22:00] VITALS: BP 146/93; PULSE 73; TEMP 36.5; O2SAT 100
[2021-07-17 22:07] VITALS: BP 146/93; PULSE 73
[2021-07-17] MEDS: Prazosin HCL 1 MG CAPSULE PO (22:07)
[2021-07-17] MEDS: QUEtiapine Fumarate 100 MG TABLET PO (22:07)
[2021-07-18] MEDS: Acetaminophen 325 MG TABLET 650 MG PO ×3 (05:07→21:36)
[2021-07-18 06:00] VITALS: BP 122/78; PULSE 68; RESP 18; TEMP 36.6; O2SAT 99
[2021-07-18 08:58] VITALS: BP 136/70; PULSE 79
[2021-07-18] MEDS: Propranolol HCL 20 MG TABLET PO ×3 (08:58→21:34)
[2021-07-18] MEDS: Venlafaxine HCl ER 75 MG CAP.ER.24H PO (09:00)
[2021-07-18] MEDS: buPROPion HCl XL 150 MG TAB.ER.24H PO (09:00)
[2021-07-18] MEDS: Multivitamin TABLET 1 TAB PO (09:00)
[2021-07-18 14:50] VITALS: BP 120/80; PULSE 89
--- NOTE | 2021-07-18 16:41 | HO.PSYCHPN ---
Subjective Subjective Date of Service: 07/18/21 Reason For Visit: Depression,SI Interim History: Patient reports continued depression. but it is a little better than on admission in though she still has intermittent SI, she is not thinking about ways she can kill herself. Patient continues to have panic attacks, most often when she wakes up in the morning. This afternoon patient again got panicky and said she feels like hitting and breaking everything she sees. She was able to calm herself down by taking a shower and would say able to keep herself in behavioral control. She thinks she was triggered by a song. Parking Lot Spotter discussed patient's past history of trauma and how deeply this can affect one's emotions, often triggering lability faster than a one is aware. patient agreed that her unprocessed trauma likely driving much of her depression and anxiety and she says she is feeling it is probably time to open up start processing it. Patient agrees to increasing Wellbutrin to 300 mg; she denies medication side effects. She also agrees to starting Lamictal. given that the Lamictal takes a while to become therapeutic, automobile and property underwriter discussed adding a potentially temporary mood stabilizer/ antipsychotic. Patient is already on Seroquel So for now and to avoid polypharmacy will increase PRNs available. Mental Status Exam Mental Status Exam Narrative: Pt is alert and oriented; behavior is cooperative, calm; dressed in casual attire with adequate hygiene; mood is described as depressed and anxious; affect labile; eye contact appropriate; Speech is normal rate, volume and prosody and not pressured; no psychomotor agitation/retardation present; thought process is organized and goal directed. Thought content remains on fighting off hopelessness and SI; intermittent, passive SI, but less intense and w/out thinking of how to; TC otherwise pertinent to relevant topics and without any delusional content, paranoid ideations or grandiosity; no HI. There is no evidence of perceptual disturbance. ?Patients insight and judgment are impaired. Diagnostics Vital Signs (24Hr): Vital Signs - 24 hr 07/17/21 22:00 07/17/21 22:07 07/18/21 06:00 Temperature 97.7 F 97.8 F Pulse Rate 73 73 68 Respiratory Rate 18 Blood Pressure 146/93 H 146/93 H 122/78 Pulse Oximetry 100 99 07/18/21 08:58 07/18/21 14:50 Temperature Pulse Rate 79 89 Respiratory Rate Blood Pressure 136/70 120/80 Pulse Oximetry Body Mass Index 42.3 Labs Results: 07/15/21 15:56 07/15/21 15:56 Medications Medications Current Medications Acetaminophen (Acetaminophen 325 Mg Tablet) 650 mg PO Q6H PRN PRN Reason: Headache/Pain Mild Scale (1-3) Last Admin: 07/18/21 13:22 Dose: 650 mg Documented by: Al Hydroxide/Mg Hydroxide (Magnesium Hydrox/Alum Hydrox 30 Ml Oral.Susp) 30 ml PO Q6H PRN PRN Reason: Heartburn/Nausea Bupropion HCl (Bupropion Hcl Xl 300 Mg Tab.Er.24h) 300 mg PO DAILY ALAN Hydroxyzine HCl (Hydroxyzine Hcl 25 Mg Tablet) 25 mg PO Q6H PRN PRN Reason: Anxiety Lamotrigine (Lamotrigine 25 Mg Tablet) 25 mg PO DAILY ALAN Magnesium Hydroxide (Milk Of Magnesia 30 Ml Oral.Susp) 30 ml PO DAILY PRN PRN Reason: Constipation Multivitamins/Vitamin C (Multivitamin Tablet) 1 tab PO DAILY ALAN Last Admin: 07/18/21 09:00 Dose: 1 tab Documented by: Patient Own Medication (Orilissa 150 Mg) 1 each PO DAILY ALAN Last Admin: 07/18/21 09:02 Dose: 1 each Documented by: Prazosin HCl (Prazosin Hcl 1 Mg Capsule) 1 mg PO BEDTIME ALAN; Protocol Last Admin: 07/17/21 22:07 Dose: 1 mg Documented by: Propranolol HCl (Propranolol Hcl 20 Mg Tablet) 20 mg PO TID ALAN; Protocol Last Admin: 07/18/21 14:50 Dose: 20 mg Documented by: Quetiapine Fumarate (Quetiapine Fumarate 100 Mg Tablet) 100 mg PO BEDTIME ALAN Last Admin: 07/17/21 22:07 Dose: 100 mg Documented by: Quetiapine Fumarate (Quetiapine Fumarate 50 Mg Tablet) 50 mg PO DAILY PRN PRN Reason: morning anxiety Quetiapine Fumarate (Quetiapine Fumarate 25 Mg Tablet) 25 mg PO QID PRN PRN Reason: anxiety Trazodone HCl (Trazodone Hcl 50 Mg Tablet) 50 mg PO BEDTIME PRN PRN Reason: Insomnia Venlafaxine HCl (Venlafaxine Hcl Er 75 Mg Cap.Er.24h) 75 mg PO DAILY ALAN Stop: 07/22/21 23:59 Last Admin: 07/18/21 09:00 Dose: 75 mg Documented by: Venlafaxine HCl (Venlafaxine Hcl Er 37.5 Mg Cap.Er.24h) 37.5 mg PO DAILY ALAN Allergies Allergies Allergy/AdvReac Type Severity Reaction Status Date / Time fish derived [fish] AdvReac Stomach Verified 07/15/21 15:51 Upset Assessment & Plan Assessment & Plan (1) Opioid use disorder, moderate, dependence: Status: Acute Code(s): F11.20 - Opioid dependence, uncomplicated Assessment and Plan: patient given written information around medications for OUD. She will review and discuss in AM with Recovery Support RN Additional recovery support information provided Assessment and Plan: Viky is a 26 y.o. Female who carries a dx of MDD, recurrent, GIORGI, PTSD, and opioid use disorder and endometriosis. Pt was seen by crisis for SI, SA by OD on seroquel. She is presenting with sx of depression, anxiety, and endorses SI but denies plan or intent and says she feels safe on the unit. Pt reports she has significant trauma hx but did not go into detail during todays assessment. Recent relapse on percocet. Hx of detox and section [address] for opiate abuse. Single parent, daughter is not in her custody and DCF is involved. Hospital course/medication reasoning: ?07/16 Patient agrees to taper and discontinue venlafaxine which she says has been on helpful at all even at current 225 mg dose She agrees to start a trial of Wellbutrin to see if that can help with depression -patient endorses considerable anxiety as well as depression, saying she wakes up in a near panic every morning; propranolol helps; Wellbutrin can sometimes bother anxiety, however will monitor Patient is also interested in potentially getting on Lamictal but given the fact that it can take over a month to even reach a therapeutic dose, she would like to start Wellbutrin 1st.? Discussed nightmares and patient is currently taking propranolol at bedtime for her anxiety. -still depressed and anxious with periodic crying spells; tolerating med changes so far -will likely start Lamictal; Wellbutrin will be used to see if can prove effective during which time Lamictal can be titrated and then on board if needed. Given Lamictal is a longer titration, Pt does not want to loose time should Wellbutrin only proved partially effective; given patient's long history of crippling depression and recent suicide attempt, automobile and property underwriter agrees with this approach. 07/18 patient remains depressed though it is less intense and though she still has SI, she reports she is no longer obsessed with thinking of ways. She continues to have panic attack and struggles with anxiety; still struggles with finding of hopelessness but is working on it. Will increase Wellbutrin and start Lamictal. Patient has not tolerated SSRI/SNRI so hopefully Lamictal and Wellbutrin will help with PTSD in addition to treatment for depression. Patient feels more ready to engage with her therapist regarding history of trauma -patient recently attempted suicide and remains extremely depressed with intermittent SI; will remain admitted for medication management safety DX MDD recurrent severe without psychotic symptoms PTSD, chronic GIORGI (? vs ptsd anxiety) Opioid use disorder PLAN: Patient on CV Q 15 minutes for checks -INCREASE toWellbutrin 300 mg XL; for continued depression -ADD Seroquel 25 mg q.i.d. for anxiety -START Lamictal 25 mg daily -continue to taper and DC venlafaxine; to avoid discontinuation syndrome will likely leave patient on some lower dose for an extended period of time Continue Seroquel at bedtime (discontinued AM scheduled seroquel) Continue propranolol t.i.d. Continue prazosin 1 mg for nightmares to see if helps; BP WNL Will start patient on naltrexone Continue patient's own medication Orilissa 150 Mg Tablet for endometriosis otherwise: Monitor response to medications. Monitor for safety in the milieu. Discharge on stabilization. Patient seen. Chart reviewed. Discussed with team. Obtain collateral contact info?as needed I spent minutes with the patient and/or on the patient floor today, greater than?50% of which was spent counseling/coordinating care. Reason for contiued inpatient stay Substantial Risk for: rapid decompensation
[2021-07-18 21:10] VITALS: BP 131/86; PULSE 80; RESP 18; TEMP 37; O2SAT 99
[2021-07-18 21:34] VITALS: BP 131/86; PULSE 80
[2021-07-18] MEDS: Prazosin HCL 1 MG CAPSULE PO (21:34)
[2021-07-18] MEDS: QUEtiapine Fumarate 100 MG TABLET PO (21:34)
[2021-07-19 08:20] VITALS: BP 132/85; PULSE 94
[2021-07-19] MEDS: buPROPion HCl XL 300 MG TAB.ER.24H PO (08:20)
[2021-07-19] MEDS: lamoTRIgine 25 MG TABLET PO (08:20)
[2021-07-19] MEDS: Venlafaxine HCl ER 75 MG CAP.ER.24H PO (08:20)
[2021-07-19] MEDS: Propranolol HCL 20 MG TABLET PO ×3 (08:20→20:50)
[2021-07-19] MEDS: Multivitamin TABLET 1 TAB PO (08:21)
[2021-07-19] MEDS: Acetaminophen 325 MG TABLET 650 MG PO ×3 (08:23→20:50)
[2021-07-19 08:52] VITALS: BP 132/85; PULSE 94; RESP 18; TEMP 36.7; O2SAT 98
[2021-07-19] MEDS: Magnesium Hydrox/Alum Hydrox 30 ML ORAL.SUSP PO (10:47)
[2021-07-19 13:47] VITALS: BP 130/83; PULSE 108
[2021-07-19] MEDS: QUEtiapine Fumarate 25 MG TABLET PO (17:36)
--- NOTE | 2021-07-19 18:15 | HO.PSYCHPN ---
Subjective Subjective Date of Service: 07/19/21 Reason For Visit: Depression,SI Interim History: Patient was very upset this morning, angry and feeling like knocking down stuff. This morning she was redirected by staff and threw a brush and really into the hallway. Patient has been somewhat over involved in other patient's treatment. she took a shower and it helped but these feelings have lasted throughout the day. She does not know why but says she gets triggered very easily by others. Otherwise patient said that her mood is better and she no longer has suicidal ideation. Golf Shoe Spike Assembler discussed increased mood stability with atypical antipsychotic and patient agreed to Abilify Mental Status Exam Mental Status Exam Narrative: ?Pt is alert and oriented; behavior is cooperative, calm; dressed in casual attire with adequate hygiene; mood is described as depressed and anxious; affect labile; eye contact appropriate; Speech is normal rate, volume and prosody and not pressured; no psychomotor agitation/retardation present; thought process is organized and goal directed. Thought content remains on fighting off hopelessness and SI; intermittent, passive SI, but less intense and w/out thinking of how to; TC otherwise pertinent to relevant topics and without any delusional content, paranoid ideations or grandiosity; no HI. There is no evidence of perceptual disturbance. ?Patients insight and judgment are impaired. Diagnostics Vital Signs (24Hr): Vital Signs - 24 hr 07/18/21 21:10 07/18/21 21:34 07/19/21 08:20 Temperature 98.6 F Pulse Rate 80 80 94 Respiratory Rate 18 Blood Pressure 131/86 131/86 132/85 Pulse Oximetry 99 07/19/21 08:52 07/19/21 13:47 Temperature 98.1 F Pulse Rate 94 108 H Respiratory Rate 18 Blood Pressure 132/85 130/83 Pulse Oximetry 98 Body Mass Index 42.3 Labs Results: 07/15/21 15:56 07/15/21 15:56 Medications Medications Current Medications Acetaminophen (Acetaminophen 325 Mg Tablet) 650 mg PO Q6H PRN PRN Reason: Headache/Pain Mild Scale (1-3) Last Admin: 07/19/21 15:14 Dose: 650 mg Documented by: Al Hydroxide/Mg Hydroxide (Magnesium Hydrox/Alum Hydrox 30 Ml Oral.Susp) 30 ml PO Q6H PRN PRN Reason: Heartburn/Nausea Last Admin: 07/19/21 10:47 Dose: 30 ml Documented by: Aripiprazole (Aripiprazole 5 Mg Tablet) 5 mg PO DAILY ALAN Bupropion HCl (Bupropion Hcl Xl 300 Mg Tab.Er.24h) 300 mg PO DAILY ALAN Last Admin: 07/19/21 08:20 Dose: 300 mg Documented by: Hydroxyzine HCl (Hydroxyzine Hcl 25 Mg Tablet) 25 mg PO Q6H PRN PRN Reason: Anxiety Lamotrigine (Lamotrigine 25 Mg Tablet) 25 mg PO DAILY ALAN Last Admin: 07/19/21 08:20 Dose: 25 mg Documented by: Magnesium Hydroxide (Milk Of Magnesia 30 Ml Oral.Susp) 30 ml PO DAILY PRN PRN Reason: Constipation Multivitamins/Vitamin C (Multivitamin Tablet) 1 tab PO DAILY ALAN Last Admin: 07/19/21 08:21 Dose: 1 tab Documented by: Patient Own Medication (Orilissa 150 Mg) 1 each PO DAILY [facility] Last Admin: 07/19/21 08:21 Dose: 1 each Documented by: Prazosin HCl (Prazosin Hcl 1 Mg Capsule) 1 mg PO BEDTIME ALAN; Protocol Last Admin: 07/18/21 21:34 Dose: 1 mg Documented by: Propranolol HCl (Propranolol Hcl 20 Mg Tablet) 20 mg PO TID ALAN; Protocol Last Admin: 07/19/21 13:47 Dose: 20 mg Documented by: Quetiapine Fumarate (Quetiapine Fumarate 100 Mg Tablet) 100 mg PO BEDTIME ALAN Last Admin: 07/18/21 21:34 Dose: 100 mg Documented by: Quetiapine Fumarate (Quetiapine Fumarate 25 Mg Tablet) 25 mg PO QID PRN PRN Reason: anxiety Last Admin: 07/19/21 17:36 Dose: 25 mg Documented by: Venlafaxine HCl (Venlafaxine Hcl Er 75 Mg Cap.Er.24h) 75 mg PO DAILY ALAN Stop: 07/22/21 23:59 Last Admin: 07/19/21 08:20 Dose: 75 mg Documented by: Venlafaxine HCl (Venlafaxine Hcl Er 37.5 Mg Cap.Er.24h) 37.5 mg PO DAILY [facility] Allergies Allergies Allergy/AdvReac Type Severity Reaction Status Date / Time fish derived [fish] AdvReac Stomach Verified 07/15/21 15:51 Upset Assessment & Plan Assessment & Plan (1) Opioid use disorder, moderate, dependence: Status: Acute Code(s): F11.20 - Opioid dependence, uncomplicated Assessment and Plan: patient given written information around medications for OUD. She will review and discuss in AM with Recovery Support RN Additional recovery support information provided Assessment and Plan: Viky is a 26 y.o. Female who carries a dx of MDD, recurrent, GIORGI, PTSD, and opioid use disorder and endometriosis. Pt was seen by crisis for SI, SA by OD on seroquel. She is presenting with sx of depression, anxiety, and endorses SI but denies plan or intent and says she feels safe on the unit. Pt reports she has significant trauma hx but did not go into detail during todays assessment. Recent relapse on percocet. Hx of detox and [place] [address] for opiate abuse. Single parent, daughter is not in her custody and DCF is involved. Hospital course/medication reasoning: ?07/16 Patient agrees to taper and discontinue venlafaxine which she says has been on helpful at all even at current 225 mg dose She agrees to start a trial of Wellbutrin to see if that can help with depression -patient endorses considerable anxiety as well as depression, saying she wakes up in a near panic every morning; propranolol helps; Wellbutrin can sometimes bother anxiety, however will monitor Patient is also interested in potentially getting on Lamictal but given the fact that it can take over a month to even reach a therapeutic dose, she would like to start Wellbutrin 1st.? Discussed nightmares and patient is currently taking propranolol at bedtime for her anxiety. -still depressed and anxious with periodic crying spells; tolerating med changes so far -will likely start Lamictal; Wellbutrin will be used to see if can prove effective during which time Lamictal can be titrated and then on board if needed. Given Lamictal is a longer titration, Pt does not want to loose time should Wellbutrin only proved partially effective; given patient's long history of crippling depression and recent suicide attempt, production underwriter agrees with this approach. 07/18 patient remains depressed though it is less intense and though she still has SI, she reports she is no longer obsessed with thinking of ways. She continues to have panic attack and struggles with anxiety; still struggles with finding of hopelessness but is working on it. Will increase Wellbutrin and start Lamictal. Patient has not tolerated SSRI/SNRI so hopefully Lamictal and Wellbutrin will help with PTSD in addition to treatment for depression. Patient feels more ready to engage with her therapist regarding history of trauma -patient recently attempted suicide and remains extremely depressed with intermittent SI; will remain admitted for medication management safety -patient reports feeling revved up. It is not clear if this is simply anxiety or if she actually does have a touch of bipolar disorder and some manic symptoms are coming through. The milieu is particularly activating which may very well be the cause. Either way patient would benefit from a small dose of atypical medication as a mood stabilizer while her Lamictal is titrating; Abilify is also good as antidepressant augment ir. Golf Shoe Spike Assembler reviewed risks and side effects of this medication. It is no worthy however that patient's mood has improved and she reports suicide ideation has resolved. - DX MDD recurrent severe without psychotic symptoms PTSD, chronic GIORGI (? vs ptsd anxiety) Opioid use disorder borderline traits? PLAN: Patient on CV Q 15 minutes for checks Will add Abilify 5 mg daily for increased mood stability and depression augment ir -on 07/18 INCREASEd toWellbutrin 300 mg XL; for continued depression -ADD Seroquel 25 mg q.i.d. for anxiety -START Lamictal 25 mg daily -continue to taper and DC venlafaxine; to avoid discontinuation syndrome will likely leave patient on some lower dose for an extended period of time Continue Seroquel at bedtime (discontinued AM scheduled seroquel) Continue propranolol t.i.d. Continue prazosin 1 mg for nightmares to see if helps; BP WNL Will start patient on naltrexone Continue patient's own medication Orilissa 150 Mg Tablet for endometriosis otherwise: Monitor response to medications. Monitor for safety in the milieu. Discharge on stabilization. Patient seen. Chart reviewed. Discussed with team. Obtain collateral contact info?as needed I spent minutes with the patient and/or on the patient floor today, greater than?50% of which was spent counseling/coordinating care. Reason for contiued inpatient stay Substantial Risk for: med/psych decompensation
[2021-07-19 20:47] VITALS: BP 142/79; PULSE 81
[2021-07-19] MEDS: Prazosin HCL 1 MG CAPSULE PO (20:47)
[2021-07-19] MEDS: QUEtiapine Fumarate 100 MG TABLET PO (20:47)
[2021-07-19] MEDS: ARIPiprazole 2 MG TABLET PO (20:47)
[2021-07-19 20:50] VITALS: BP 142/79; PULSE 81
[2021-07-19 21:05] VITALS: BP 142/79; PULSE 81; RESP 20; TEMP 36.4; O2SAT 99
[2021-07-20 06:00] VITALS: BP 123/73; PULSE 74; RESP 18; TEMP 36.6; O2SAT 100
[2021-07-20] MEDS: buPROPion HCl XL 300 MG TAB.ER.24H PO (08:12)
[2021-07-20] MEDS: Venlafaxine HCl ER 75 MG CAP.ER.24H PO (08:12)
[2021-07-20] MEDS: lamoTRIgine 25 MG TABLET PO (08:12)
[2021-07-20] MEDS: Acetaminophen 325 MG TABLET 650 MG PO ×2 (08:12→15:56)
[2021-07-20] MEDS: ARIPiprazole 5 MG TABLET PO (08:12)
[2021-07-20] MEDS: Multivitamin TABLET 1 TAB PO (08:13)
[2021-07-20] MEDS: QUEtiapine Fumarate 25 MG TABLET PO ×2 (08:13→23:01)
[2021-07-20 08:21] VITALS: BP 133/78; PULSE 91
[2021-07-20] MEDS: Propranolol HCL 20 MG TABLET PO ×3 (08:21→21:15)
[2021-07-20] MEDS: Magnesium Hydrox/Alum Hydrox 30 ML ORAL.SUSP PO (10:50)
[2021-07-20] MEDS: Ibuprofen 600 MG TABLET PO ×2 (13:37→21:15)
[2021-07-20 15:54] VITALS: BP 139/82; PULSE 82
[2021-07-20 17:05] VITALS: BP 139/82; PULSE 82; RESP 18; TEMP 36.7; O2SAT 98
--- NOTE | 2021-07-20 17:08 | HO.PSYCHPN ---
Subjective Subjective Date of Service: 07/20/21 Reason For Visit: Depression,SI Medical Problems Affecting Mental Status: No Interim History: Patient reports mood is improving. As per staff intermittently labile and anxious. Is complaining of abdominal discomfort in the context of endometriosis. Reports that heating pad is helpful and we felt supported that staff will utilize hot towels due to limitations around heating pad, cords and tubing. Patient reports that no issues from Abilify and hopeful that will help stabilize mood. Aware naltrexone being started tomorrow and feels positive about this. Medication Compliance: Yes Side effects from medications: No Attending Groups: Yes Review of Systems Acute medical concerns: No Review of Systems: Unremarkable Review of Systems Review of Systems unremarkable Mental Status Exam Mental Status Exam Narrative: pleasant and engaged. Casually dressed. Organized. Reports feeling anxious at times. No SI. No HI. No psychosis. Insight and judgment fair Diagnostics Vital Signs (24Hr): Vital Signs - 24 hr 07/19/21 20:47 07/19/21 20:50 07/19/21 21:05 Temperature 97.5 F Pulse Rate 81 81 81 Respiratory Rate 20 Blood Pressure 142/79 H 142/79 H 142/79 H Pulse Oximetry 99 07/20/21 06:00 07/20/21 08:21 07/20/21 15:54 Temperature 97.8 F Pulse Rate 74 91 82 Respiratory Rate 18 Blood Pressure 123/73 133/78 139/82 Pulse Oximetry 100 07/20/21 17:05 Temperature 98.0 F Pulse Rate 82 Respiratory Rate 18 Blood Pressure 139/82 Pulse Oximetry 98 Body Mass Index 42.3 Labs Results: 07/15/21 15:56 07/15/21 15:56 Medications Medications Current Medications Acetaminophen (Acetaminophen 325 Mg Tablet) 650 mg PO Q6H PRN PRN Reason: Headache/Pain Mild Scale (1-3) Last Admin: 07/20/21 15:56 Dose: 650 mg Documented by: Al Hydroxide/Mg Hydroxide (Magnesium Hydrox/Alum Hydrox 30 Ml Oral.Susp) 30 ml PO Q6H PRN PRN Reason: Heartburn/Nausea Last Admin: 07/20/21 10:50 Dose: 30 ml Documented by: Aripiprazole (Aripiprazole 5 Mg Tablet) 5 mg PO DAILY ALAN Last Admin: 07/20/21 08:12 Dose: 5 mg Documented by: Bupropion HCl (Bupropion Hcl Xl 300 Mg Tab.Er.24h) 300 mg PO DAILY ALAN Last Admin: 07/20/21 08:12 Dose: 300 mg Documented by: Hydroxyzine HCl (Hydroxyzine Hcl 25 Mg Tablet) 25 mg PO Q6H PRN PRN Reason: Anxiety Ibuprofen (Ibuprofen 600 Mg Tablet) 600 mg PO Q6H PRN PRN Reason: headache Last Admin: 07/20/21 13:37 Dose: 600 mg Documented by: Lamotrigine (Lamotrigine 25 Mg Tablet) 25 mg PO DAILY ALAN Last Admin: 07/20/21 08:12 Dose: 25 mg Documented by: Magnesium Hydroxide (Milk Of Magnesia 30 Ml Oral.Susp) 30 ml PO DAILY PRN PRN Reason: Constipation Multivitamins/Vitamin C (Multivitamin Tablet) 1 tab PO DAILY ALAN Last Admin: 07/20/21 08:13 Dose: 1 tab Documented by: Naltrexone HCl (Naltrexone Hcl 50 Mg Tablet) 25 mg PO DAILY [facility] Patient Own Medication (Orilissa 150 Mg) 1 each PO DAILY [facility] Last Admin: 07/20/21 08:11 Dose: 1 each Documented by: Prazosin HCl (Prazosin Hcl 1 Mg Capsule) 1 mg PO BEDTIME ALAN; Protocol Last Admin: 07/19/21 20:47 Dose: 1 mg Documented by: Propranolol HCl (Propranolol Hcl 20 Mg Tablet) 20 mg PO TID ALAN; Protocol Last Admin: 07/20/21 15:54 Dose: 20 mg Documented by: Quetiapine Fumarate (Quetiapine Fumarate 100 Mg Tablet) 100 mg PO BEDTIME ALAN Last Admin: 07/19/21 20:47 Dose: 100 mg Documented by: Quetiapine Fumarate (Quetiapine Fumarate 25 Mg Tablet) 25 mg PO QID PRN PRN Reason: anxiety Last Admin: 07/20/21 08:13 Dose: 25 mg Documented by: Venlafaxine HCl (Venlafaxine Hcl Er 75 Mg Cap.Er.24h) 75 mg PO DAILY [facility] Stop: 07/22/21 23:59 Last Admin: 07/20/21 08:12 Dose: 75 mg Documented by: Venlafaxine HCl (Venlafaxine Hcl Er 37.5 Mg Cap.Er.24h) 37.5 mg PO DAILY [facility] Allergies Allergies Allergy/AdvReac Type Severity Reaction Status Date / Time fish derived [fish] AdvReac Stomach Verified 07/15/21 15:51 Upset Assessment & Plan Assessment & Plan (1) Opioid use disorder, moderate, dependence: Status: Acute Code(s): F11.20 - Opioid dependence, uncomplicated Assessment and Plan: patient given written information around medications for OUD. She will review and discuss in AM with Recovery Support RN Additional recovery support information provided Assessment and Plan: Viky is a 26 y.o. Female who carries a dx of MDD, recurrent, GIORGI, PTSD, and opioid use disorder and endometriosis. Pt was seen by crisis for SI, SA by OD on seroquel. She is presenting with sx of depression, anxiety, and endorses SI but denies plan or intent and says she feels safe on the unit. Pt reports she has significant trauma hx but did not go into detail during todays assessment. Recent relapse on percocet. Hx of detox and [address] for opiate abuse. Single parent, daughter is not in her custody and DCF is involved. Hospital course/medication reasoning: ?07/16 Patient agrees to taper and discontinue venlafaxine which she says has been on helpful at all even at current 225 mg dose She agrees to start a trial of Wellbutrin to see if that can help with depression -patient endorses considerable anxiety as well as depression, saying she wakes up in a near panic every morning; propranolol helps; Wellbutrin can sometimes bother anxiety, however will monitor Patient is also interested in potentially getting on Lamictal but given the fact that it can take over a month to even reach a therapeutic dose, she would like to start Wellbutrin 1st.? Discussed nightmares and patient is currently taking propranolol at bedtime for her anxiety. -still depressed and anxious with periodic crying spells; tolerating med changes so far -will likely start Lamictal; Wellbutrin will be used to see if can prove effective during which time Lamictal can be titrated and then on board if needed. Given Lamictal is a longer titration, Pt does not want to loose time should Wellbutrin only proved partially effective; given patient's long history of crippling depression and recent suicide attempt, administrative underwriter agrees with this approach. 07/18 patient remains depressed though it is less intense and though she still has SI, she reports she is no longer obsessed with thinking of ways. She continues to have panic attack and struggles with anxiety; still struggles with finding of hopelessness but is working on it. Will increase Wellbutrin and start Lamictal. Patient has not tolerated SSRI/SNRI so hopefully Lamictal and Wellbutrin will help with PTSD in addition to treatment for depression. Patient feels more ready to engage with her therapist regarding history of trauma -patient recently attempted suicide and remains extremely depressed with intermittent SI; will remain admitted for medication management safety -patient reports feeling revved up. It is not clear if this is simply anxiety or if she actually does have a touch of bipolar disorder and some manic symptoms are coming through. The milieu is particularly activating which may very well be the cause. Either way patient would benefit from a small dose of atypical medication as a mood stabilizer while her Lamictal is titrating; Abilify is also good as antidepressant augment ir. Manager Solar reviewed risks and side effects of this medication. It is no worthy however that patient's mood has improved and she reports suicide ideation has resolved. - DX MDD recurrent severe without psychotic symptoms PTSD, chronic GIORGI (? vs ptsd anxiety) Opioid use disorder borderline traits? PLAN: Patient on CV Q 15 minutes for checks Will add Abilify 5 mg daily for increased mood stability and depression augment ir -on 07/18 INCREASEd toWellbutrin 300 mg XL; for continued depression -ADD Seroquel 25 mg q.i.d. for anxiety -START Lamictal 25 mg daily -continue to taper and DC venlafaxine; to avoid discontinuation syndrome will likely leave patient on some lower dose for an extended period of time Continue Seroquel at bedtime (discontinued AM scheduled seroquel) Continue propranolol t.i.d. Continue prazosin 1 mg for nightmares to see if helps; BP WNL Will start patient on naltrexone Continue patient's own medication Orilissa 150 Mg Tablet for endometriosis otherwise: Monitor response to medications. Monitor for safety in the milieu. Discharge on stabilization. Patient seen. Chart reviewed. Discussed with team. Obtain collateral contact info?as needed that her 07/20/2021. Naltrexone starting tomorrow, Abilify just started, therefore no changes to primary team treatment plan overall I spent minutes with the patient and/or on the patient floor today, greater than?50% of which was spent counseling/coordinating care. Reason for contiued inpatient stay Substantial Risk for: harm to self
[2021-07-20 21:15] VITALS: BP 134/89; PULSE 73
[2021-07-20 23:00] VITALS: BP 134/89; PULSE 73
[2021-07-20] MEDS: Prazosin HCL 1 MG CAPSULE PO (23:00)
[2021-07-20] MEDS: QUEtiapine Fumarate 100 MG TABLET PO (23:01)
[2021-07-21] MEDS: hydrOXYzine HCL 25 MG TABLET PO ×2 (00:32→06:46)
[2021-07-21 06:00] VITALS: BP 129/58; PULSE 99; RESP 18; TEMP 36.8; O2SAT 100
[2021-07-21] MEDS: Ibuprofen 600 MG TABLET PO (06:46)
[2021-07-21] MEDS: QUEtiapine Fumarate 25 MG TABLET PO (06:47)
[2021-07-21] MEDS: Naltrexone HCl 50 MG TABLET 25 MG PO (08:35)
[2021-07-21 08:37] VITALS: BP 138/78; PULSE 98
[2021-07-21] MEDS: Propranolol HCL 20 MG TABLET PO ×3 (08:37→21:17)
[2021-07-21] MEDS: ARIPiprazole 5 MG TABLET PO (08:37)
[2021-07-21] MEDS: Venlafaxine HCl ER 75 MG CAP.ER.24H PO (08:37)
[2021-07-21] MEDS: Multivitamin TABLET 1 TAB PO (08:37)
[2021-07-21] MEDS: buPROPion HCl XL 300 MG TAB.ER.24H PO (08:37)
[2021-07-21] MEDS: lamoTRIgine 25 MG TABLET PO (08:38)
--- NOTE | 2021-07-21 11:51 | P.PNPSI_ITS ---
Subjective Subjective Date of Service: 07/21/21 Reason For Visit: Depression,SI Interim History: Today presents as bright. Reports feeling better, but also reports having internal irritability but utilizing distraction and attending groups to minimize same. Speech is slightly pressured. Sleep okay. Still no concerns regarding Abilify that was restarted. Feels positive that contract and was also started today. Medication Compliance: Yes Side effects from medications: No Attending Groups: Yes Review of Systems Acute medical concerns: No Review of Systems Review of Systems unremarkable Mental Status Exam Mental Status Exam Narrative: pleasant and engaged. Casually dressed. Organized. Reports feeling anxious at times. No SI. No HI. No psychosis. Insight and judgment fair Diagnostics Vital Signs (24Hr): Vital Signs - 24 hr 07/20/21 15:54 07/20/21 17:05 07/20/21 21:15 Temperature 98.0 F Pulse Rate 82 82 73 Respiratory Rate 18 Blood Pressure 139/82 139/82 134/89 Pulse Oximetry 98 07/20/21 23:00 07/21/21 06:00 07/21/21 08:37 Temperature 98.3 F Pulse Rate 73 99 98 Respiratory Rate 18 Blood Pressure 134/89 129/58 L 138/78 Pulse Oximetry 100 Body Mass Index 42.3 Labs Results: 07/15/21 15:56 07/15/21 15:56 Medications Medications Current Medications Acetaminophen (Acetaminophen 325 Mg Tablet) 650 mg PO Q6H PRN PRN Reason: Headache/Pain Mild Scale (1-3) Last Admin: 07/20/21 15:56 Dose: 650 mg Documented by: Al Hydroxide/Mg Hydroxide (Magnesium Hydrox/Alum Hydrox 30 Ml Oral.Susp) 30 ml PO Q6H PRN PRN Reason: Heartburn/Nausea Last Admin: 07/20/21 10:50 Dose: 30 ml Documented by: Aripiprazole (Aripiprazole 5 Mg Tablet) 5 mg PO DAILY ALAN Last Admin: 07/21/21 08:37 Dose: 5 mg Documented by: Bupropion HCl (Bupropion Hcl Xl 300 Mg Tab.Er.24h) 300 mg PO DAILY ALAN Last Admin: 07/21/21 08:37 Dose: 300 mg Documented by: Hydroxyzine HCl (Hydroxyzine Hcl 25 Mg Tablet) 25 mg PO Q6H PRN PRN Reason: Anxiety Last Admin: 07/21/21 06:46 Dose: 25 mg Documented by: Ibuprofen (Ibuprofen 600 Mg Tablet) 600 mg PO Q6H PRN PRN Reason: headache Last Admin: 07/21/21 06:46 Dose: 600 mg Documented by: Lamotrigine (Lamotrigine 25 Mg Tablet) 25 mg PO DAILY [facility] Last Admin: 07/21/21 08:38 Dose: 25 mg Documented by: Magnesium Hydroxide (Milk Of Magnesia 30 Ml Oral.Susp) 30 ml PO DAILY PRN PRN Reason: Constipation Multivitamins/Vitamin C (Multivitamin Tablet) 1 tab PO DAILY ALAN Last Admin: 07/21/21 08:37 Dose: 1 tab Documented by: Naltrexone HCl (Naltrexone Hcl 50 Mg Tablet) 25 mg PO DAILY ALAN Last Admin: 07/21/21 08:35 Dose: 25 mg Documented by: Patient Own Medication (Orilissa 150 Mg) 1 each PO DAILY [facility] Last Admin: 07/21/21 08:35 Dose: 1 each Documented by: Prazosin HCl (Prazosin Hcl 1 Mg Capsule) 1 mg PO BEDTIME ALAN; Protocol Last Admin: 07/20/21 23:00 Dose: 1 mg Documented by: Propranolol HCl (Propranolol Hcl 20 Mg Tablet) 20 mg PO TID ALAN; Protocol Last Admin: 07/21/21 08:37 Dose: 20 mg Documented by: Quetiapine Fumarate (Quetiapine Fumarate 100 Mg Tablet) 100 mg PO BEDTIME ALAN Last Admin: 07/20/21 23:01 Dose: 100 mg Documented by: Quetiapine Fumarate (Quetiapine Fumarate 25 Mg Tablet) 25 mg PO QID PRN PRN Reason: anxiety Last Admin: 07/21/21 06:47 Dose: 25 mg Documented by: Venlafaxine HCl (Venlafaxine Hcl Er 75 Mg Cap.Er.24h) 75 mg PO DAILY ALAN Stop: 07/22/21 23:59 Last Admin: 07/21/21 08:37 Dose: 75 mg Documented by: Venlafaxine HCl (Venlafaxine Hcl Er 37.5 Mg Cap.Er.24h) 37.5 mg PO DAILY [facility] Allergies Allergies Allergy/AdvReac Type Severity Reaction Status Date / Time fish derived [fish] AdvReac Stomach Verified 07/15/21 15:51 Upset Assessment & Plan Assessment & Plan (1) Opioid use disorder, moderate, dependence: Status: Acute Code(s): F11.20 - Opioid dependence, uncomplicated Assessment and Plan: * patient given written information around medications for OUD. She will review and discuss in AM with Recovery Support RN * Additional recovery support information provided Assessment and Plan: Viky is a 26 y.o. Female who carries a dx of MDD, recurrent, GIORGI, PTSD, and opioid use disorder and endometriosis. Pt was seen by crisis for SI, SA by OD on seroquel. She is presenting with sx of depression, anxiety, and endorses SI but denies plan or intent and says she feels safe on the unit. Pt reports she has significant trauma hx but did not go into detail during todays assessment. Recent relapse on percocet. Hx of detox and [place] [address] for opiate abuse. Single parent, daughter is not in her custody and DCF is involved. Hospital course/medication reasoning: ?07/16 Patient agrees to taper and discontinue venlafaxine which she says has been on helpful at all even at current 225 mg dose She agrees to start a trial of Wellbutrin to see if that can help with depression -patient endorses considerable anxiety as well as depression, saying she wakes up in a near panic every morning; propranolol helps; Wellbutrin can sometimes bother anxiety, however will monitor Patient is also interested in potentially getting on Lamictal but given the fact that it can take over a month to even reach a therapeutic dose, she would like to start Wellbutrin 1st.? Discussed nightmares and patient is currently taking propranolol at bedtime for her anxiety. -still depressed and anxious with periodic crying spells; tolerating med changes so far -will likely start Lamictal; Wellbutrin will be used to see if can prove effective during which time Lamictal can be titrated and then on board if needed. Given Lamictal is a longer titration, Pt does not want to loose time should Wellbutrin only proved partially effective; given patient's long history of crippling depression and recent suicide attempt, law writer agrees with this ap proach. 07/18 patient remains depressed though it is less intense and though she still has SI, she reports she is no longer obsessed with thinking of ways. She continues to have panic attack and struggles with anxiety; still struggles with finding of hopelessness but is working on it. Will increase Wellbutrin and start Lamictal. Patient has not tolerated SSRI/SNRI so hopefully Lamictal and Wellbutrin will help with PTSD in addition to treatment for depression. Patient feels more ready to engage with her therapist regarding history of trauma -patient recently attempted suicide and remains extremely depressed with intermittent SI; will remain admitted for medication management safety -patient reports feeling revved up. It is not clear if this is simply anxiety or if she actually does have a touch of bipolar disorder and some manic symptoms are coming through. The milieu is particularly activating which may very well be the cause. Either way patient would benefit from a small dose of atypical medication as a mood stabilizer while her Lamictal is titrating; Abilify is also good as antidepressant augment ir. Personnel Coordinator reviewed risks and side effects of this medication. It is no worthy however that patient's mood has improved and she reports suicide ideation has resolved. - DX MDD recurrent severe without psychotic symptoms PTSD, chronic GIORGI (? vs ptsd anxiety) Opioid use disorder borderline traits? PLAN: Patient on CV Q 15 minutes for checks Will add Abilify 5 mg daily for increased mood stability and depression augment ir -on 07/18 INCREASEd toWellbutrin 300 mg XL; for continued depression -ADD Seroquel 25 mg q.i.d. for anxiety -START Lamictal 25 mg daily -continue to taper and DC venlafaxine; to avoid discontinuation syndrome will likely leave patient on some lower dose for an extended period of time Continue Seroquel at bedtime (discontinued AM scheduled seroquel) Continue propranolol t.i.d. Continue prazosin 1 mg for nightmares to see if helps; BP WNL Will start patient on naltrexone Continue patient's own medication Orilissa 150 Mg Tablet for endometriosis otherwise: Monitor response to medications. Monitor for safety in the milieu. Discharge on stabilization. Patient seen. Chart reviewed. Discussed with team. Obtain collateral contact info?as needed 07/20/2021. Naltrexone starting tomorrow, Abilify just started, therefore no changes to primary team treatment plan overall 07/21/2021: No changes I spent minutes with the patient and/or on the patient floor today, greater than?50% of which was spent counseling/coordinating care. Reason for contiued inpatient stay Substantial Risk for: harm to self
[2021-07-21] MEDS: Magnesium Hydrox/Alum Hydrox 30 ML ORAL.SUSP PO (13:34)
[2021-07-21] MEDS: Acetaminophen 325 MG TABLET 650 MG PO (13:36)
[2021-07-21 15:58] VITALS: BP 145/80; PULSE 76
[2021-07-21 16:08] VITALS: BP 145/80; PULSE 76; RESP 16; TEMP 36.6; O2SAT 100
[2021-07-21 21:15] VITALS: BP 151/79; PULSE 86
[2021-07-21] MEDS: Prazosin HCL 1 MG CAPSULE PO (21:15)
[2021-07-21 21:17] VITALS: BP 151/79; PULSE 86
[2021-07-21] MEDS: QUEtiapine Fumarate 100 MG TABLET PO (23:13)
[2021-07-22] MEDS: Magnesium Hydrox/Alum Hydrox 30 ML ORAL.SUSP PO (00:41)
[2021-07-22] MEDS: Ibuprofen 600 MG TABLET PO ×3 (00:41→23:15)
[2021-07-22] MEDS: hydrOXYzine HCL 25 MG TABLET PO ×2 (00:42→06:31)
[2021-07-22 06:00] VITALS: BP 112/80; PULSE 82; RESP 18; TEMP 36.2; O2SAT 99
[2021-07-22] MEDS: Multivitamin TABLET 1 TAB PO (08:48)
[2021-07-22] MEDS: Naltrexone HCl 50 MG TABLET 25 MG PO (08:49)
[2021-07-22 08:50] VITALS: BP 115/58; PULSE 72
[2021-07-22] MEDS: buPROPion HCl XL 300 MG TAB.ER.24H PO (08:50)
[2021-07-22] MEDS: Venlafaxine HCl ER 75 MG CAP.ER.24H PO (08:50)
[2021-07-22] MEDS: lamoTRIgine 25 MG TABLET PO (08:50)
[2021-07-22] MEDS: Propranolol HCL 20 MG TABLET PO ×3 (08:50→23:15)
[2021-07-22] MEDS: ARIPiprazole 5 MG TABLET PO (08:50)
[2021-07-22 08:51] LABS: Alanine Aminotransferase 15 U/L (0-31); Albumin Level 4.7 g/dL (3.5-5.0); Alkaline Phosphatase 70 U/L (39-117); Aspartate Amino Transferase 15 U/L (5-31); Bilirubin Direct 0.2 mg/dL (0.0-0.5); Bilirubin Total 0.5 mg/dL (0.0-1.0); Total Protein 7.4 g/dL (6.5-8.0)
[2021-07-22] MEDS: QUEtiapine Fumarate 25 MG TABLET PO (14:20)
[2021-07-22] MEDS: Acetaminophen 325 MG TABLET 650 MG PO ×2 (14:24→23:15)
--- NOTE | 2021-07-22 16:11 | P.PNPSI_ITS ---
Subjective Subjective Date of Service: 07/22/21 Reason For Visit: Depression,SI Interim History: pt reports mood is better; she still has some depression but says he feels much better than on admission and actually feels mostly happy. Pt denies ay SI and says she feels safe to go home . Pt reports nightmares remain resolved. Pt discussed tough interaction she had this weekend and shared how she still gets overwhelmed by her feelings at times and sees herself as overreacting often, however, she feels that she's becoming more aware of her triggers and is slowly getting more control over behaviors. She said she is looking forward to continuing with her therapist and feels ready to finally discuss her hx of trauma. Pt is tolerating meds well and wants to remain on current regimen. Pt's mother visited unit and pt said it was good. Mental Status Exam Mental Status Exam Narrative: Pt is alert and oriented; behavior is cooperative, calm and friendly; dressed in casual attire with adequate hygiene; mood is described as happy; affect congruent, bright; eye contact appropriate; Speech is normal rate, volume and prosody and not pressured; no psychomotor agitation/retardation present; thought process is organized and goal directed. Thought content remains on continuing treatment; TC otherwise pertinent to relevant topics and without any delusional content, paranoid ideations or grandiosity; no SI or HI. There is no evidence of perceptual disturbance. ?Patients insight and judgment are intact. Diagnostics Vital Signs (24Hr): Vital Signs - 24 hr 07/21/21 21:15 07/21/21 21:17 07/22/21 06:00 Temperature 97.2 F Pulse Rate 86 86 82 Respiratory Rate 18 Blood Pressure 151/79 H 151/79 H 112/80 Pulse Oximetry 99 07/22/21 08:50 Temperature Pulse Rate 72 Respiratory Rate Blood Pressure 115/58 L Pulse Oximetry Body Mass Index 42.3 Labs Results: 07/15/21 15:56 07/15/21 15:56 Labs: Laboratory Results - last 48 hr 07/22/21 07:48 Total Bilirubin 0.5 Direct Bilirubin 0.2 AST 15 ALT 15 Alkaline Phosphatase 70 Total Protein 7.4 Albumin 4.7 Medications Medications Current Medications Acetaminophen (Acetaminophen 325 Mg Tablet) 650 mg PO Q6H PRN PRN Reason: Headache/Pain Mild Scale (1-3) Last Admin: 07/22/21 14:24 Dose: 650 mg Documented by: Al Hydroxide/Mg Hydroxide (Magnesium Hydrox/Alum Hydrox 30 Ml Oral.Susp) 30 ml PO Q6H PRN PRN Reason: Heartburn/Nausea Last Admin: 07/22/21 00:41 Dose: 30 ml Documented by: Aripiprazole (Aripiprazole 5 Mg Tablet) 5 mg PO DAILY [facility] Last Admin: 07/22/21 08:50 Dose: 5 mg Documented by: Bupropion HCl (Bupropion Hcl Xl 300 Mg Tab.Er.24h) 300 mg PO DAILY [facility] Last Admin: 07/22/21 08:50 Dose: 300 mg Documented by: Hydroxyzine HCl (Hydroxyzine Hcl 25 Mg Tablet) 25 mg PO Q6H PRN PRN Reason: Anxiety Last Admin: 07/22/21 06:31 Dose: 25 mg Documented by: Ibuprofen (Ibuprofen 600 Mg Tablet) 600 mg PO Q6H PRN PRN Reason: headache Last Admin: 07/22/21 10:36 Dose: 600 mg Documented by: Lamotrigine (Lamotrigine 25 Mg Tablet) 25 mg PO DAILY [facility] Last Admin: 07/22/21 08:50 Dose: 25 mg Documented by: Magnesium Hydroxide (Milk Of Magnesia 30 Ml Oral.Susp) 30 ml PO DAILY PRN PRN Reason: Constipation Multivitamins/Vitamin C (Multivitamin Tablet) 1 tab PO DAILY [facility] Last Admin: 07/22/21 08:48 Dose: 1 tab Documented by: Naltrexone HCl (Naltrexone Hcl 50 Mg Tablet) 25 mg PO DAILY [facility] Last Admin: 07/22/21 08:49 Dose: 25 mg Documented by: Patient Own Medication (Orilissa 150 Mg) 1 each PO DAILY [facility] Last Admin: 07/22/21 08:52 Dose: 1 each Documented by: Prazosin HCl (Prazosin Hcl 1 Mg Capsule) 1 mg PO BEDTIME [facility]; Protocol Last Admin: 07/21/21 21:15 Dose: 1 mg Documented by: Propranolol HCl (Propranolol Hcl 20 Mg Tablet) 20 mg PO TID [facility]; Protocol Last Admin: 07/22/21 08:50 Dose: 20 mg Documented by: Quetiapine Fumarate (Quetiapine Fumarate 100 Mg Tablet) 100 mg PO BEDTIME [facility] Last Admin: 07/21/21 23:13 Dose: 100 mg Documented by: Quetiapine Fumarate (Quetiapine Fumarate 25 Mg Tablet) 25 mg PO QID PRN PRN Reason: anxiety Last Admin: 07/22/21 14:20 Dose: 25 mg Documented by: Venlafaxine HCl (Venlafaxine Hcl Er 75 Mg Cap.Er.24h) 75 mg PO DAILY [facility] Stop: 07/22/21 23:59 Last Admin: 07/22/21 08:50 Dose: 75 mg Documented by: Venlafaxine HCl (Venlafaxine Hcl Er 37.5 Mg Cap.Er.24h) 37.5 mg PO DAILY [facility] Allergies Allergies Allergy/AdvReac Type Severity Reaction Status Date / Time fish derived [fish] AdvReac Stomach Verified 07/15/21 15:51 Upset Assessment & Plan Assessment & Plan (1) Opioid use disorder, moderate, dependence: Status: Acute Code(s): F11.20 - Opioid dependence, uncomplicated Assessment and Plan: * patient given written information around medications for OUD. She will review and discuss in AM with Recovery Support RN * Additional recovery support information provided Assessment and Plan: Viky is a 26 y.o. Female who carries a dx of MDD, recurrent, GIORGI, PTSD, and opioid use disorder and endometriosis. Pt was seen by crisis for SI, SA by OD on seroquel. She is presenting with sx of depression, anxiety, and endorses SI but denies plan or intent and says she feels safe on the unit. Pt reports she has significant trauma hx but did not go into detail during todays assessment. Recent relapse on percocet. Hx of detox and section 35 for opiate abuse. Single parent, daughter is not in her custody and DCF is involved. Hospital course/medication reasoning: ?07/16 Patient agrees to taper and discontinue venlafaxine which she says has been on helpful at all even at current 225 mg dose She agrees to start a trial of Wellbutrin to see if that can help with depression -patient endorses considerable anxiety as well as depression, saying she wakes up in a near panic every morning; propranolol helps; Wellbutrin can sometimes bother anxiety, however will monitor Patient is also interested in potentially getting on Lamictal but given the fact that it can take over a month to even reach a therapeutic dose, she would like to start Wellbutrin 1st.? Discussed nightmares and patient is currently taking p ropranolol at bedtime for her anxiety. -still depressed and anxious with periodic crying spells; tolerating med changes so far -will likely start Lamictal; Wellbutrin will be used to see if can prove effective during which time Lamictal can be titrated and then on board if needed. Given Lamictal is a longer titration, Pt does not want to loose time should Wellbutrin only proved partially effective; given patient's long history of crippling depression and recent suicide attempt, advertising copy writer agrees with this approach. 07/18 patient remains depressed though it is less intense and though she still has SI, she reports she is no longer obsessed with thinking of ways. She continues to have panic attack and struggles with anxiety; still struggles with finding of hopelessness but is working on it. Will increase Wellbutrin and start Lamictal. Patient has not tolerated SSRI/SNRI so hopefully Lamictal and Wellbutrin will help with PTSD in addition to treatment for depression. Patient feels more ready to engage with her therapist regarding history of trauma -patient recently attempted suicide and remains extremely depressed with intermittent SI; will remain admitted for medication management safety -patient reports feeling revved up. It is not clear if this is simply anxiety or if she actually does have a touch of bipolar disorder and some manic symptoms are coming through. The milieu is particularly activating which may very well be the cause. Either way patient would benefit from a small dose of atypical medication as a mood stabilizer while her Lamictal is titrating; Abilify is also good as antidepressant augment ir. Test Inspection Engineer reviewed risks and side effects of this medication. It is no worthy however that patient's mood has improved and she reports suicide ideation has resolved. 07/22 pt is good mood, no SI, feeling stable, future oriented and appropriate for discharge. DX MDD recurrent severe without psychotic symptoms PTSD, chronic (GIORGI or more likely ptsd anxiety) Opioid use disorder borderline traits? PLAN: Patient on CV Q 15 minutes for checks naltrexone; labs wnl Abilify 5 mg daily for increased mood stability and depression augment ir Wellbutrin 300 mg XL; for continued depression Seroquel 25 mg q.i.d. for anxiety Lamictal 25 mg daily -continue to taper and DC venlafaxine; to avoid discontinuation syndrome will likely leave patient on some lower dose for an extended period of time Continue Seroquel at bedtime (discontinued AM scheduled seroquel) Continue propranolol t.i.d. Continue prazosin 1 mg for nightmares to see if helps; BP WNL Will start patient on naltrexone Continue patient's own medication Orilissa 150 Mg Tablet for endometriosis otherwise: Monitor response to medications. Monitor for safety in the milieu. Discharge on stabilization. Patient seen. Chart reviewed. Discussed with team. Obtain collateral contact info?as needed 07/20/2021. Naltrexone starting tomorrow, Abilify just started, therefore no changes to primary team treatment plan overall 07/21/2021: No changes I spent minutes with the patient and/or on the patient floor today, greater than?50% of which was spent counseling/coordinating care. Reason for contiued inpatient stay Substantial Risk for: stable for discharge
[2021-07-22 16:28] VITALS: BP 137/85; PULSE 72
[2021-07-22 23:15] VITALS: BP 138/81; PULSE 67
[2021-07-22] MEDS: QUEtiapine Fumarate 100 MG TABLET PO (23:15)
[2021-07-22] MEDS: Prazosin HCL 1 MG CAPSULE PO (23:15)
[2021-07-23 06:00] VITALS: BP 127/90; PULSE 74; RESP 18; TEMP 37.5; O2SAT 98
[2021-07-23] MEDS: hydrOXYzine HCL 25 MG TABLET PO (06:59)
[2021-07-23] MEDS: buPROPion HCl XL 300 MG TAB.ER.24H PO (08:14)
[2021-07-23] MEDS: Naltrexone HCl 50 MG TABLET 25 MG PO (08:14)
[2021-07-23] MEDS: Venlafaxine HCl ER 37.5 MG CAP.ER.24H PO (08:14)
[2021-07-23] MEDS: ARIPiprazole 5 MG TABLET PO (08:14)
[2021-07-23 08:15] VITALS: BP 127/90; PULSE 74
[2021-07-23] MEDS: Propranolol HCL 20 MG TABLET PO (08:15)
[2021-07-23] MEDS: Multivitamin TABLET 1 TAB PO (08:15)
[2021-07-23] MEDS: lamoTRIgine 25 MG TABLET PO (08:15)
--- NOTE | 2021-07-23 09:23 | P.DS_ITS ---
DS: Providers Provider Date of Service: 07/23/21 Date of admission: 07/15/21 21:55 Date of discharge: 07/23/21 Primary care physician: Unknown Physician Attending physician on admission: Rolando Spear Consults: 07/15/21 22:42 Addiction Medicine Routine Consulting Provider: Darshana Weaver Reason for consultation: questioning MAT Attending physician on discharge: Rolando Spear DS: Diagnosis Discharge Diagnosis (1) MDD (major depressive disorder), recurrent, severe, with psychosis: Status: Chronic (2) Post traumatic stress disorder (PTSD): Status: Chronic (3) Opioid use disorder, moderate, dependence: (4) Endometriosis: Status: Chronic DS: Medications Discharge Medications Home Medications: Home Medications Medication Instructions Recorded Confirmed elagolix 150 mg tablet (Orilissa) 1 tab PO DAILY 07/15/21 07/15/21 multivitamin 1 tab PO DAILY 07/15/21 07/15/21 Previous Rx's Medication Instructions Recorded aripiprazole 5 mg tablet (Abilify) 5 mg PO DAILY 30 Days #30 tab 07/23/21 bupropion HCl 300 mg 24 hr tablet, 300 mg PO DAILY 30 Days #30 tab 07/23/21 extended release hydroxyzine HCl 25 mg tablet 25 mg PO Q6H PRN 30 Days #60 tab 07/23/21 lamotrigine 25 mg tablet See Rx Instructions .ROUTE 07/23/21 .COMPLEX 30 Days #58 tab naltrexone 50 mg tablet 25 mg PO DAILY 30 Days #15 tab 07/23/21 prazosin 1 mg capsule 1 mg PO BEDTIME 30 Days #30 cap 07/23/21 propranolol 20 mg tablet 20 mg PO TID 30 Days #90 tab 07/23/21 quetiapine 100 mg tablet 100 mg PO BEDTIME PRN 30 Days #30 07/23/21 tab quetiapine 25 mg tablet 25 mg PO TID PRN 30 Days #90 tab 07/23/21 venlafaxine 37.5 mg 37.5 mg PO DAILY 10 Days #10 cap 07/23/21 capsule,extended release 24 hr Mental Status Exam Mental Status Exam Narrative: ?Pt is alert and oriented; behavior is cooperative, calm and friendly; dressed in casual attire with adequate hygiene; mood is described as happy; affect congruent, bright; eye contact appropriate; Speech is normal rate, volume and prosody and not pressured; no psychomotor agitation/retardation present; thought process is organized and goal directed. Thought content remains on continuing treatment; TC otherwise pertinent to relevant topics and without any delusional content, paranoid ideations or grandiosity; no SI or HI. There is no evidence of perceptual disturbance. ?Patients insight and judgment are intact. Data Data Completed and Pending Completed studies during hospitalization [Text1]: 07/22/21 07:48 Total Bilirubin 0.5 Direct Bilirubin 0.2 AST 15 ALT 15 Alkaline Phosphatase 70 Total Protein 7.4 Albumin 4.7 DS: Summary Hospital Course Hospital Course: Viky is a 26 y.o. Female who carries a dx of MDD, recurrent, GIORGI, PTSD, and opioid use disorder and endometriosis.? Pt was seen by crisis for SI, SA by OD on seroquel. She is presenting with sx of depression, anxiety, and endorses SI but denies plan or intent and says she feels safe on the unit. Pt reports she has significant trauma hx but did not go into detail during todays assessment. Recent relapse on percocet. Hx of detox and section 35 for opiate abuse. Single parent, daughter is not in her custody and DCF is involved. Hospital course: On admission, patient calm depressed and with passive SI and without intent or plans. Patient agreed to medication changes: DC'd Venlafaxine (At 225mg still not effective; Tapered off venlafaxine to 37.5; will continue for 10 days as outpatient and then discontinue); Started on Lamictal Started on naltrexone Started on Wellbutrin Started prazosin for nightmares Started on Abilify 5 mg daily; will take abilify until Lamictal is at therapeuti c dose and then consider discontinue Changed Seroquel to 25 mg p.r.n. instead of scheduled 50 mg in the morning Started on Naltrexone for opioid use disorder Patient was forthcoming during interviews. She had considerable anxiety waking up in near panic every morning however propranolol was helpful. Patient was actively engaged in her treatment. With milieu therapy, one-to-one sessions, groups and medication changes, patient's mood improved and suicidality fully resolved. Patient felt medication changes were helpful and she denied side effects. She agreed to start naltrexone for opioid use disorder and liver enzymes within normal limits. Pt had been hesitant to discuss some things with her therapist, but said after this admission, she felt ready to fully engage with her outpt therapist and discuss trauma. Pt felt ready for discharge back to her supportive boyfriend. She was future oriented, optimistic about remaining stable and staying sober and remains without any SI. Pt was not in imminent risk for harm to self or others and appropriate for discharge. DX MDD recurrent severe without psychotic symptoms PTSD, chronic (GIORGI or more likely ptsd anxiety) Opioid use disorder Time spent discussing smoking cessation with patient: 3 to 10 minutes Status at Discharge Functional status at discharge: independent ambulation Overall status at discharge: patient is back to baseline Time Spent with Patient Time attestation: Total time spent providing and/or coordinating discharge services: Time spent: Greater than 30 minutes Discharge Plan Discharge Patient Disposition: Home, Self-Care Discharge Diagnosis: MDD, recurrent, severe w/out psychosis, in partial remission Referrals: Viviane Davis (therapy) [Other] - 07/24/21 10:15 am (This is a Telehealth appointment) Rolando Betancourt (medication management) [Other] - 07/26/21 11:00 am (This is a Telehealth appointment ) Dr. Ally Herrera (MAT Intake) [Other] - 07/24/21 1:30 pm (The MAT Intake appointment takes about 30-45 minutes. You will then be scheduled for a follow- up appointment to receive the Vivitrol injection.) Vasu Rivero MD [Physician] - 1 Week (OFFICE AWARE OF DISCHARGE FOLLOW-UP APPOINTMENT . OFFICE WILL CALL US BACK WITH DATE OR WILL CALL PATIENT WITH APPOINTMENT.) Physician,Ann-Marie J [Primary Care Provider] - 1 Week Discharge Medications: New prazosin 1 mg Capsule 1 mg PO BEDTIME 30 Days Qty: 30 RF: 0 aripiprazole [Abilify] 5 mg Tablet 5 mg PO DAILY 30 Days Qty: 30 RF: 0 bupropion HCl 300 mg Tablet Extended Release 24 Hr 300 mg PO DAILY 30 Days Qty: 30 RF: 0 hydroxyzine HCl 25 mg Tablet 25 mg PO Q6H PRN (Reason: mild Anxiety) 30 Days Qty: 60 RF: 0 lamotrigine 25 mg Tablet See Rx Instructions .ROUTE .COMPLEX 30 Days Qty: 58 RF: 0 naltrexone 50 mg Tablet 25 mg PO DAILY 30 Days Qty: 15 RF: 0 quetiapine 100 mg Tablet 100 mg PO BEDTIME PRN (Reason: insomnia) 30 Days Qty: 30 RF: 0 quetiapine 25 mg Tablet 25 mg PO TID PRN (Reason: anxiety) 30 Days Qty: 90 RF: 0 venlafaxine 37.5 mg Capsule,Extended Release 24hr 37.5 mg PO DAILY 10 Days Qty: 10 RF: 0 Continued Orilissa 150 mg tablet 1 tab PO DAILY RF: 0 multivitamin Tablet 1 tab PO DAILY RF: 0 Changed propranolol 20 mg tablet 20 mg PO TID 30 Days Qty: 90 RF: 0 Discontinued venlafaxine 75 mg capsule,extended release 24hr 1 cap PO DAILY RF: 0 venlafaxine 150 mg capsule,extended release 24hr 1 cap PO DAILY RF: 0 quetiapine 50 mg tablet 50 mg PO DAILY RF: 0 acetaminophen 500 mg Tablet 500 mg PO TID RF: 0 quetiapine 50 mg Tablet 100 mg PO BEDTIME RF: 0 No Action Vivitrol 380 mg suspension,extended rel recon 380 mg IM Q4W 30 Days Qty: 1 RF: 5 Discharge Orders: Discharge Order (Routine); Ordered 07/23/21 Ordered By: Rolando Spear Diet: regular diet Activity on Discharge: As tolerated Stand Alone Forms: Patient Portal Discharge page Care Plan Goals: Maintain mood and safe behaviors Take medications as prescribed Continue to pursue sobriety Practice coping skills Continue with outpatient providers and reach out to them as needed Health Concerns: Mood stability and behaviors Sobriety Endometriosis Plan of Treatment: Follow up with your PCP, psychiatric provider and other outpatient providers regarding above concerns Take medications as prescribed Keep taking venlafaxine but only 37.5 for 10 days and then discontinue Lamictal: take as prescribed for mood; outpt provider will further increase dose as needed. Take Abilify 5 mg daily; once Lamictal is at therapeutic dose, consider stopping Abilify. Assessment: Risk assessment at time of discharge:? Patient was interviewed prior to discharge and found to be fully oriented and without any SI or HI. Patient has insight and demonstrates good judgment in terms of wanting to pursue treatment. Patient is not in imminent risk of harm to self or others and has a safety plan that includes presenting to the closest ER or calling 911 if feeling unsafe.? Patient has been observed closely by nursing and unit staff throughout admission; patient has not engaged in any dangerous behaviors to self or others and although she had a few dysregulated episodes, overall has demonstrated appropriate behaviors and impulse control Discharge Date/Time: 07/23/21 13:17
[2021-07-23] MEDS: Naloxone HCl Nasal TAKE HOME 4 MG SPRAY NOSTRILALT (10:09)
[2021-07-23] MEDS: Magnesium Hydrox/Alum Hydrox 30 ML ORAL.SUSP PO (10:29)
== END 2021-07-23 13:17 | disposition home or self-care (01) | DRG 751 ==
LOC: HO.ED 21:25 → HO.PM5 22:00
PROVIDERS: Nurse Practitioner Family; Admitting Provider Registered Nurse; Emergency Provider Emergency Medicine; Visit Provider Psychiatry & Neurology Psychiatry
DX: F33.3 Major depressive disorder, recurrent, severe with psychotic symptoms (principal); R45.851 Suicidal ideations; F11.20 Opioid dependence, uncomplicated; F41.1 Generalized anxiety disorder; F43.10 Post-traumatic stress disorder, unspecified; Z91.51 Personal history of suicidal behavior; Z20.822 Contact with and (suspected) exposure to COVID-19; Z79.899 Other long term (current) drug therapy
CPT/HCPCS: 36415; 80048; 80076; 80143; 80179; 80307; 81025; 82077; 85025; 87635; 93005; 99285

== ENCOUNTER → 2021-07-24 13:19 | Outpatient (BNVA) | payer OTHER, SELFPAY | PROVIDERS: Visit Provider Internal Medicine | DX: F11.20 Opioid dependence, uncomplicated (principal); F12.10 Cannabis abuse, uncomplicated; F17.210 Nicotine dependence, cigarettes, uncomplicated; F32.A Depression, unspecified; Z91.013 Allergy to seafood; Z51.81 Encounter for therapeutic drug level monitoring | CPT/HCPCS: 80305; 99202 ==

== ENCOUNTER 2021-08-07 13:29 | Outpatient (REF) | payer OTHER, SELFPAY ==
[2021-08-08 10:29] LABS: HBS Num1 7.41 mIU/mL (0-7.99); ~HepC Num1 0.07 S/CO (0.00-0.79); ~Hepatitis B Surface Antibody NONREACTIVE (Nonreactive); ~Hepatitis C Antibody Nonreactive (Nonreactive)
[2021-08-08 10:31] LABS: HBsAGNum1 0.14 S/CO (0.00-0.99); HIV AB/AG Nonreactive (Nonreactive); HIV Num 1 0.07 S/CO (0.00-0.99); Hepatitis B Surface Antigen Negative (Negative)
[2021-08-08 12:29] LABS: Hepatitis A Antibody IgG REACTIVE (Nonreactive); ~Hepatitis A Antibody IgG 8.12 S/CO (0.00-0.99)
== END 2021-08-07 13:30 | disposition home or self-care (01) ==
LOC: HO.LAB 13:29
PROVIDERS: Visit Provider Internal Medicine
DX: Z11.4 Encounter for screening for human immunodeficiency virus [HIV] (principal); F11.20 Opioid dependence, uncomplicated; F33.3 Major depressive disorder, recurrent, severe with psychotic symptoms; Z79.899 Other long term (current) drug therapy
CPT/HCPCS: 36415; 80305; 81025; 86706; 86708; 86803; 87340; 87389; 96372; 99212; J2315

== ENCOUNTER → 2021-09-16 11:41 | Outpatient (BNVA) | payer OTHER, SELFPAY | DX: Z51.81 Encounter for therapeutic drug level monitoring (principal); F11.20 Opioid dependence, uncomplicated; F33.3 Major depressive disorder, recurrent, severe with psychotic symptoms | CPT/HCPCS: 80305; 81025; 96372; 99212; J2315 ==

== ENCOUNTER → 2021-10-15 13:59 | Outpatient (BNVA) | payer OTHER, SELFPAY | PROVIDERS: Visit Provider Internal Medicine | DX: F11.20 Opioid dependence, uncomplicated (principal); Z51.81 Encounter for therapeutic drug level monitoring; Z79.899 Other long term (current) drug therapy | CPT/HCPCS: 80305; 81025; 96372; 99212 ==

== ENCOUNTER → 2021-11-12 13:49 | Outpatient (BNVA) | payer OTHER, SELFPAY | PROVIDERS: Visit Provider Internal Medicine | DX: F11.20 Opioid dependence, uncomplicated (principal); F33.3 Major depressive disorder, recurrent, severe with psychotic symptoms | CPT/HCPCS: 80305; 96372; 99212 ==

== ENCOUNTER → 2021-12-10 10:38 | Outpatient (BNVA) | payer OTHER, SELFPAY | PROVIDERS: Visit Provider Internal Medicine | DX: Z51.81 Encounter for therapeutic drug level monitoring (principal); F11.20 Opioid dependence, uncomplicated | CPT/HCPCS: 80305; 96372; 99212; J2315 ==

== ENCOUNTER → 2022-01-07 15:02 | Outpatient (BNVA) | payer OTHER, SELFPAY | PROVIDERS: Visit Provider Internal Medicine | DX: F11.20 Opioid dependence, uncomplicated (principal) | CPT/HCPCS: 80305; 96372; 99212; J2315 ==

== ENCOUNTER → 2022-02-05 13:54 | Outpatient (BNVA) | payer OTHER, SELFPAY | PROVIDERS: Visit Provider Internal Medicine | DX: F11.20 Opioid dependence, uncomplicated (principal) | CPT/HCPCS: 80305; 96372; 99212; J2315 ==

== ENCOUNTER → 2022-03-05 15:44 | Outpatient (BNVA) | payer OTHER, SELFPAY | PROVIDERS: Visit Provider Internal Medicine | DX: Z51.81 Encounter for therapeutic drug level monitoring (principal); F11.20 Opioid dependence, uncomplicated; Z32.02 Encounter for pregnancy test, result negative | CPT/HCPCS: 80305; 81025; 96372; 99212; J2315 ==

== ENCOUNTER → 2022-04-02 10:49 | Outpatient (BNVA) | payer OTHER, SELFPAY | PROVIDERS: Visit Provider Internal Medicine | DX: Z51.81 Encounter for therapeutic drug level monitoring (principal); F11.20 Opioid dependence, uncomplicated; Z32.02 Encounter for pregnancy test, result negative | CPT/HCPCS: 80305; 81025; 96372; 99212; J2315 ==

== ENCOUNTER → 2022-05-02 15:03 | Outpatient (BNVA) | payer OTHER, SELFPAY | PROVIDERS: Visit Provider Internal Medicine | DX: F11.20 Opioid dependence, uncomplicated (principal); Z51.81 Encounter for therapeutic drug level monitoring; Z32.02 Encounter for pregnancy test, result negative | CPT/HCPCS: 99212; J2315 ==

== ENCOUNTER → 2022-05-30 14:39 | Outpatient (BNVA) | payer OTHER, SELFPAY | PROVIDERS: Visit Provider Internal Medicine | DX: Z51.81 Encounter for therapeutic drug level monitoring (principal); F11.20 Opioid dependence, uncomplicated | CPT/HCPCS: 99212; J2315 ==

== ENCOUNTER → 2022-07-07 14:55 | Outpatient (BNVA) | payer OTHER, SELFPAY | PROVIDERS: Visit Provider Internal Medicine | DX: Z51.81 Encounter for therapeutic drug level monitoring (principal); F11.20 Opioid dependence, uncomplicated; Z32.02 Encounter for pregnancy test, result negative | CPT/HCPCS: 96372; 99212; J2315 ==

== ENCOUNTER → 2022-08-05 13:01 | Outpatient (BNVA) | payer OTHER, SELFPAY | PROVIDERS: Visit Provider Internal Medicine | DX: F11.20 Opioid dependence, uncomplicated (principal) | CPT/HCPCS: 96372; 99212 ==